=== PATIENT | male | born 1990 ===

== ENCOUNTER 2020-03-17 10:00 | Outpatient (REF) | payer MEDICAID, SELFPAY | END 2020-03-17 10:01 | disposition home or self-care (01) | LOC: HO.LAB 10:00 | PROVIDERS: Visit Provider Internal Medicine | DX: Z20.828 Contact with and (suspected) exposure to other viral communicable diseases (principal) | CPT/HCPCS: C9803; U0003 ==

== ENCOUNTER 2021-07-05 10:32 | Emergency (ER) | payer MEDICAID, SELFPAY ==
[2021-07-05 10:41] VITALS: BP 118/72; PULSE 71; O2SAT 100
[2021-07-05 11:26] VITALS: BP 110/80; PULSE 69; RESP 19; TEMP 36.6; O2SAT 99; BMI 28.1
[2021-07-05] MEDS: Ondansetron ODT 4 MG TAB.RAPDIS TRANSLINGU (11:33)
[2021-07-05 15:32] LABS: MANUAL DIFF FLAG NO
[2021-07-05 15:33] LABS: Basophils Percent Auto 0.2 % (0-2); Eosinophils Percent Auto 0.1 % (0-4); Hematocrit 47.3 % (42.0-52.0); Hemoglobin 16.8 g/dl (14.0-18.0); Imm Gran Abs Auto 0.05 X10*3/uL (0.00-0.03); Imm Gran Pct Auto 0.5 % (0.0-0.4); Lymphocytes Absolute Auto 0.3 X10*3/uL (1.2-4.9); Lymphocytes Percent Auto 3.5 % (20-40); Mean Corpuscular HGB Conc 35.5 g/dl (31.0-36.0); Mean Corpuscular Volume 81.7 fL (80.0-98.0); Mean Platelet Volume 9.9 fL (9.4-12.4); Monocytes Absolute Auto 0.9 X10*3/uL (0.1-1.2); Monocytes Percent Auto 9.3 % (2-11); Neutrophils Percent Auto 86.4 % (45-73); Platelet Count 296 X10*3/uL (160-400); Red Blood Count 5.79 X10*6/uL (4.60-5.80); White Blood Count 9.3 X10*3/uL (4.8-10.8)
[2021-07-05 15:53] LABS: Alanine Aminotransferase 27 U/L (0-40); Albumin Level 5.2 g/dL (3.5-5.0); Alkaline Phosphatase 75 U/L (39-117); Anion Gap 18 (12-20); Aspartate Amino Transferase 19 U/L (5-37); Bilirubin Direct 0.4 mg/dL (0.0-0.5); Bilirubin Total 0.9 mg/dL (0.0-1.0); Blood Urea Nitrogen 12 mg/dL (9-16); Calcium 10.6 mg/dL (8.4-10.2); Carbon Dioxide 24 mmol/L (22-29); Chloride 102 mmol/L (96-108); Creatinine Clr Calc Pharmacy 104.6; Estimated Glomerular Filt Rate > 60; Glucose Random 98 mg/dL (60-115); Lipase 8 U/L (8-78); Potassium 4.2 mmol/L (3.3-5.1); Sodium 140 mmol/L (135-145); Total Protein 8.1 g/dL (6.5-8.0)
[2021-07-05 15:56] LABS: COVID-19 Test Positive (Negative)
[2021-07-05 17:19] VITALS: BP 101/69; PULSE 63; RESP 20; TEMP 36.8; O2SAT 98
[2021-07-05] MEDS: 0.9 % Sodium Chloride 1,000 ML 999 ML IVCONT (19:19)
[2021-07-05] MEDS: Ketorolac Tromethamine 30 MG/ML VIAL IVPUSH (19:24)
[2021-07-05] MEDS: ondansetron HCL 4 MG/2 ML VIAL IVPUSH (19:25)
--- NOTE | 2021-07-05 20:04 | ED_ITS ---
HPI - Nausea/Vomiting/Diarrhea General Chief complaint: Nausea/Vomiting/Diarrhea Stated complaint: ABD PAIN/N/V Time Seen by Provider: 07/05/21 18:55 Source: patient Mode of arrival: ambulatory Limitations: no limitations History of Present Illness HPI Narrative: 31-year-old male presenting to the ED with complaints of a few hours of body aches, chills, fatigue, myalgias with nausea/ vomiting and epigastric abdominal pain. He reports that he is not tolerating anything p.o.. Reports that he was recently exposed to COVID his 2 daughters went to [place] and when they came back they were positive for COVID. He denies any other sick contacts. He denies any measured fevers, dizziness, headaches, neck pain /stiffness, trouble swallowing or breathing, sore throat, cough, chest pain or shortness of breath, radiation of the abdominal pain, back pain, dysuria, hematuria, abnormal penile discharge, rashes, lower extremity edema or calf tenderness, black or bloody stools, black or bloody emesis , recent antibiotic usage, others with similar symptoms, possible bad food exposure or any other symptoms complaints or concerns at this time. MD elicited complaint: nausea, vomiting and abdominal pain Onset (ago): hour(s) Description of vomiting: food contents, watery and bilious Associated nausea: Yes Associated abdominal pain: Yes Location of pain: epigastric Radiation: does not radiate Pain consistency: constant Severity: moderate Quality: cramping Exacerbating factors: none Relieving factors: none Associated symptoms: myalgias, fever/chills and nausea/vomiting Related Data Previous Rx's Medication Instructions Recorded acetaminophen 500 mg tablet 1,000 mg PO QID PRN #14 tab 07/05/21 (Tylenol Extra Strength) cyclobenzaprine 10 mg tablet 10 mg PO Q8H PRN #14 tab 07/05/21 ibuprofen 800 mg tablet 800 mg PO Q8H PRN #14 tab 07/05/21 ondansetron 4 mg disintegrating 4 mg PO Q6H #14 tab 07/05/21 tablet Allergies Allergy/AdvReac Type Severity Reaction Status Date / Time shrimp Allergy Unknown SWELLING Unverified 01/01/20 17:33 Review of Systems Review of Systems: Constitutional : No Fever, + Chills, No Night Sweats, + Fatigue, + Malaise Cardiovascular : No Chest Pain, No SOB Respiratory : No Cough, No Sputum, No Wheezing, No Dyspnea Gastrointestinal : + Nausea, + Vomiting, No Diarrhea, + abdominal Pain, No Hematochezia, No Melena Genitourinary : No irregular bleeding, No Dysuria, No Urinary Frequency, No Hematuria,No Urinary Incontinence, No Urgency, No Flank Pain Musculoskeletal : No joint pain, + Myalgias, No Joint Swelling Skin : No Skin Lesions, No rash Neuro : No Weakness, No Numbness, No Paresthesias, No Loss of Consciousness, No Dizziness, No Headache Heme/Lymph: No Lymphadenopathy Endocrine : No Temperature Intolerance Yes all other systems are reviewed and are negative Gastrointestinal: Gastrointestinal: Reports nausea PMFSH Past Medical History Attestation statement: The following information was validated with the patient. 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 Blood pressure normal. Heart rate normal. Respiration rate normal. Temperature normal. Oxygen saturation normal. Appearance: Alert. Oriented X3. No acute distress. Head: Normal external exam. Normocephalic. Eyes: PERRLA. EOMI. Conjunctiva and sclera normal. Eyelids normal. ENT: Pharynx normal. Uvula midline. Moist mucous membranes. No trismus noted. No drooling noted. No muffled voice noted. Neck: Normal inspection. Neck supple. FROM. No adenopathy. No meningeal signs. CVS: Normal heart rate and rhythm. Heart sound normal. No murmurs noted. Pulses normal throughout. Respiratory: No respiratory distress. Painless inspiration. Breath sounds normal. No wheezes/rales/rhonchi noted. Chest nontender. No accessory muscle usage noted or decreased air movement noted. Abdomen: Soft and nontender. Nondistended. No guarding. No rigidity. Bowel sounds normal in all 4 quadrants. No distention noted. No organomegaly noted. No visible injury noted. No rebound tenderness. Negative Rovsing sign. Negative obturator's sign. Negative psoas sign. Negative Freitas sign. Back: No CVA tenderness. Full range of motion noted. Skin: Skin warm and dry. Normal skin color. Normal skin turgor. No rashes/lesions/lacerations noted. Extremities: Extremities exhibit normal range of motion. Extremities nontender. Neuro: Oriented X 3. No motor deficit. No sensory deficit. Reflexes normal. Normal steady gait. CN's II-XII intact bilaterally? Course Course Course Narrative: 19pm - 31-year-old male presenting to the ED with complaints of a few hours of body aches, chills, fatigue, myalgias with nausea/ vomiting and epigastric abdominal pain. He reports that he is not tolerating anything p.o.. Reports that he was recently exposed to COVID his 2 daughters went to [place] and when they came back they were positive for COVID. Plan: Labs reviewed and all WNL. Patient + for COVID. On exam abd is soft and nontender. No additional labs/imaging indicated. Will provide IVF's provide 4mg of zofran and 30mg of IV Toradol then re-evaluate Reevaluation(s) Reevaluation #1: patient received a L of IV fluids. He is feeling much better. He is able to tolerate p.o. fluids. Will DC home instructions to self isolate to follow CDC guidelines and to return if any new or worsening symptoms. Patient understands agrees with this plan. Time: 20:10 MDM - Nausea/Vomiting/Diarrhea Medical Records Attestation: I reviewed the patient's medical records. Lab Data Attestation: I reviewed the patient's lab results. Result diagrams: 07/05/21 15:23 07/05/21 15:23 Labs: Lab Results 07/05/21 07/05/21 07/05/21 Range/Units 15: 15:23 15:23 WBC 9.3 (4.8-10.8) X10*3/uL RBC 5.79 (4.60-5.80) X10*6/uL Hgb 16.8 (14.0-18.0) g/dl Hct 47.3 (42.0-52.0) % MCV 81.7 (80.0-98.0) fL MCH 29.0 (27.0-33.0) pg MCHC 35.5 (31.0-36.0) g/dl RDW 12.0 (11.0-16.0) % Plt Count 296 (160-400) X10*3/uL MPV 9.9 (9.4-12.4) fL Immature Gran % (Auto) 0.5 H (0.0-0.4) % Neut % (Auto) 86.4 H (45-73) % Lymph % (Auto) 3.5 L (20-40) % [place] % (Auto) 9.3 (2-11) % Eos % (Auto) 0.1 (0-4) % Baso % (Auto) 0.2 (0-2) % Lymph # (Auto) 0.3 L (1.2-4.9) X10*3/uL [place] # (Auto) 0.9 (0.1-1.2) X10*3/uL Eos # (Auto) 0.0 (0.0-0.4) X10*3/uL Baso # (Auto) 0.0 (0.0-0.2) X10*3/uL Abs Immat Gran (auto) 0.05 H (0.00-0.03) X10*3/uL Absolute Neuts (auto) 8.0 (2.0-8.3) x10*3/uL Absolute Nucleated RBC 0.000 (0.0-0.012) X10*3/uL Nucleated RBC % (auto) 0.0 (0.0-0.2) /100WBC Sodium 140 (135-145) mmol/L Potassium 4.2 (3.3-5.1) mmol/L Chloride 102 (96-108) mmol/L Carbon Dioxide 24 (22-29) mmol/L Anion Gap 18 (12-20) BUN 12 (9-16) mg/dL Creatinine 0.92 (0.5-1.4) mg/dL Estim Creat Clear Calc 104.6 Estimated GFR > 60 Random Glucose 98 (60-115) mg/dL Calcium 10.6 H (8.4-10.2) mg/dL Total Bilirubin 0.9 (0.0-1.0) mg/dL Direct Bilirubin 0.4 (0.0-0.5) mg/dL AST 19 (5-37) U/L ALT 27 (0-40) U/L Alkaline Phosphatase 75 (39-117) U/L Total Protein 8.1 H (6.5-8.0) g/dL Albumin 5.2 H (3.5-5.0) g/dL Lipase 8 (8-78) U/L COVID-19 (KANDI) Positive A (Negative) COVID-19 Clin Com See Note Discharge Plan Discharge Clinical Impression: COVID-19, Nausea & vomiting Patient Disposition: Home, Self-Care Instructions: Acute Nausea and Vomiting (ED), COVID-19 (Coronavirus Disease 2019) (ED) Prescriptions: New ondansetron 4 mg tablet,disintegrating 4 mg PO Q6H Qty: 14 0RF ibuprofen 800 mg tablet 800 mg PO Q8H PRN (Reason: pain) Qty: 14 0RF acetaminophen [Tylenol Extra Strength] 500 mg tablet 1,000 mg PO QID PRN (Reason: fever or pain) Qty: 14 0RF cyclobenzaprine 10 mg tablet 10 mg PO Q8H PRN (Reason: Muscle spasm) Qty: 14 0RF Referrals: Vilma Gonzalez DO [Primary Care Provider] - 2 days Stand Alone Forms: Work/School Release Print Language: Congolese
--- NOTE | 2021-07-05 20:24 | PC.NURSE ---
PT GIVEN CRACKERS AND GINGERALE AND NO N/V AT THIS TIME.
--- NOTE | 2021-07-05 20:34 | PC.NURSE ---
HARD COLLAR REMOVED BY MEL RICCI.
== END 2021-07-05 20:56 | disposition home or self-care (01) ==
PROVIDERS: Emergency Provider Internal Medicine; PCP Family Medicine
DX: U07.1 COVID-19 (principal); R11.2 Nausea with vomiting, unspecified
CPT/HCPCS: 80048; 80076; 83690; 85025; 87635; 96361; 96374; 96375; 99283; 99284; J1885; J2405

== ENCOUNTER 2021-12-16 19:28 | Emergency (ER) | payer MEDICAID, SELFPAY ==
[2021-12-16 20:07] VITALS: BP 119/63; PULSE 84; RESP 18; TEMP 35.9; O2SAT 97; BMI 26.5
--- NOTE | 2021-12-16 22:15 | ED.GENADULT ---
HPI - General Adult General Chief complaint: Skin/Abscess/Foreign Body Stated complaint: Red inflamed skin after insect bite Time Seen by Provider: 12/16/21 22:15 Source: patient Mode of arrival: ambulatory Limitations: no limitations History of Present Illness HPI narrative: Patient is a 31 year old male presenting to the emergency department today with swelling to his right forearm. Patient states that he was bit by a bug 2 days ago and now his right arm is very swollen. Patient states that he had picked at the area a few times and some pus came out but he wasn't able to get all of it. Patient denies any dizziness, lightheadedness, abdominal pain, nausea, vomiting, fever, chills, blurry vision, double vision, loss of vision, chest pain, difficulty breathing, shortness of breath, back pain, night sweats, pain with urination, increased urinary frequency, increased urinary urgency, blood in his urine or stool, syncope or a near syncopal episode, recent trauma or falls, bowel incontinence, bladder incontinence, bowel retention, bladder retention, or any other complaints at this time. Onset (ago): day(s) (2) Location: right and upper extremity (forearm) Radiation: non-radiation Severity: mild Severity scale (1-10): 1 Pain Consistency: constant Relieving factors: none Exacerbating factors: none Associated symptoms: denies other symptoms Treatments prior to arrival: none Related Data Previous Rx's Medication Instructions Recorded acetaminophen 500 mg tablet 1,000 mg PO QID PRN fever or pain 07/05/21 (Tylenol Extra Strength) #14 tabs cyclobenzaprine 10 mg tablet 10 mg PO Q8H PRN Muscle spasm #14 07/05/21 tabs ibuprofen 800 mg tablet 800 mg PO Q8H PRN pain #14 tabs 07/05/21 ondansetron 4 mg disintegrating 4 mg PO Q6H Nausea and vomiting 07/05/21 tablet #14 tabs cephalexin 500 mg capsule 500 mg PO Q6H 7 days #28 caps 12/16/21 doxycycline hyclate 100 mg tablet 100 mg PO BID 7 days #14 tabs 12/16/21 Allergies Allergy/AdvReac Type Severity Reaction Status Date / Time shrimp Allergy Unknown SWELLING Unverified 01/01/20 17:33 Review of Systems Constitutional: Constitutional: Reports no additional constitutional complaints, Denies chills, Denies fever(s) and Denies night sweats Eyes: Eyes: Reports no additional eye complaints, Denies blurry vision, Denies change in vision, Denies diplopia, Denies eye discharge, Denies loss of vision and Denies eye pain ENT: Denies dizziness Cardiovascular: Cardiovascular: Reports no additional cardiovascular complaints, Denies chest pain, Denies lightheadedness, Denies Loss of Consciousness and Denies dyspnea Respiratory: Respiratory: Reports no additional respiratory complaints and Denies dyspnea Gastrointestinal: Gastrointestinal: Reports no additional gastrointestinal complaints, Denies abdominal pain, Denies melena, Denies hematochezia, Denies change in bowel habits and Denies change in stool character Genitourinary: Genitourinary: Reports no additional male genitourinary complaints, Denies hematuria, Denies oliguria, Denies difficulty urinating, Denies dysuria, Denies urinary frequency, Denies urinary hesitancy, Denies urinary incontinence and Denies urinary urgency Musculoskeletal: Musculoskeletal: Reports no additional musculoskeletal complaints, Denies numbness and Denies tingling Comments: right forearm swelling and pain Neurologic: Denies dizziness, Denies loss of vision, Denies numbness and Denies tingling Psychiatric: Psychiatric: Reports no additional psychiatric complaints Endocrine: Endocrine: Reports no additional endocrine complaints Hematologic/Lymphatic: Hematologic/Lymphatic: Reports no additional hematologic/lymphatic complaints Allergic/Immunologic: Allergic/Immunologic: Reports no additional allergic/immunologic complaints [facility] Past Medical History Attestation statement: The following information was validated with the patient. 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 Social History Social History Use of substances other than those prescribed or required for medical reasons: Yes Substance Use Type: Marijuana Substance Use Frequency: Weekly Advance Directives: No Advance Directives Information Provided: No Physical Exam ED Vital Signs: Vital Signs - 24 hr 12/16/21 20:07 12/16/21 23:53 Temperature 96.6 F L Pulse Rate 84 58 Respiratory Rate 18 16 Blood Pressure 119/63 123/69 Pulse Oximetry 97 100 Oxygen Delivery Method Room Air Room Air BMI result Body Mass Index 26.5 Const General: cooperative, no acute distress, alert and awake Nutritional Appearance: well nourished Orientation/consciousness: patient oriented x3 Limitations: no limitations HENMT Head: Yes normal to inspection and Yes atraumatic Ears: hearing grossly normal bilaterally and external ears normal General nose exam: Normal external nose present, no nasal discharge noted and no epistaxis Face and sinus: Yes normal facial exam, No abrasion and No laceration Mouth: Normal oral and palatal mucosa present, no drooling and no muffled voice Eyes General: appearance normal, both eyes and all related structures Periorbital: periorbital findings normal Eyelids: Yes eyelids normal Conjunctivae: conjunctivae normal Pupils: Equal, round and reactive pupils present EOM: EOMs intact bilaterally Neck Neck: Yes normal visual inspection, Yes full ROM and Yes no lymphadenopathy Chest Chest palpation & inspection: normal inspection of the chest Resp Effort & Inspection: normal respiratory effort and able to speak in complete sentences Auscultation: clear to auscultation bilaterally Cardio Rate: regular rate Rhythm: regular rhythm GI Inspection: Yes normal to inspection Neuro General: patient oriented x3 and moves all extremities Cranial nerves: Yes Equal, round and reactive pupils present Cognition (Neuro): normal cognition Motor exam (neuro): 5/5 motor strength present throughout Sensory Exam: Normal double simultaneous stimulation for sensation Coordination: [id number] test normal Extrem Other: obvious abscess to the dorsal aspect of the right forearm General: Yes full ROM and Yes capillary refill normal Psych Appearance: grossly normal Mental Status: mental status grossly normal Affect: normal affect Attitude: cooperative Thought process: Normal thought process present Thought content: Normal thought content present Insight: Good insight present (Psych) Procedures Abscess I/D Site: upper extremity Side (if applicable): right Sedation/analgesia: none Local Anesthetic: lidocaine 1% Amount of anesthesia used (mL): 2 Technique: incised with blade Amount of fluid expressed (mL): 15 Sent for culture/gram staining?: No Irrigation: No Packing used?: none Medical Decision Making MDM Narrative Medical decision making narrative: Patient is a 31 year old male presenting to the emergency department today with a right forearm abscess. Patient's physical exam showed an obvious abscess to the dorsal aspect of the right forearm. I explained my physical exam findings to the patient. I answered all questions asked by the patient. Patient's abscess was drained, per procedure note, without incident. I stressed the importance of the patient taking his medication as prescribed. I stressed the importance of the patient following up with his primary care provider and a general surgeon. I stressed the importance of the patient returning to the emergency department immediately if his symptoms were to worsen or if he were to develop any dizziness, shortness of breath, difficulty breathing, chest pain, blurry vision, loss of vision, nausea, vomiting, abdominal pain, fever, chills, back pain, or any other complaints. Patient verbalized agreement and understanding with this treatment plan and discharge. Differential Diagnosis Differential Diagnosis: abscess Medical Records Medical records reviewed: Yes I reviewed the patient's medical records. Discharge Plan Discharge Clinical Impression: Abscess of skin or subcutaneous tissue Patient Disposition: Home, Self-Care Instructions: Abscess (ED), Abscess Incision and Drainage (DC) Additional Instructions: Follow up with your primary care provider. Return to the emergency department immediately if your symptoms worsen or if you develop any dizziness, shortness of breath, difficulty breathing, chest pain, blurry vision, loss of vision, nausea, vomiting, abdominal pain, fever, chills, back pain, or any other complaints. Prescriptions: New cephalexin 500 mg capsule 500 mg PO Q6H 7 Days Qty: 28 0RF doxycycline hyclate 100 mg tablet 100 mg PO BID 7 Days Qty: 14 0RF No Action ondansetron 4 mg tablet,disintegrating 4 mg PO Q6H Qty: 14 0RF ibuprofen 800 mg tablet 800 mg PO Q8H PRN (Reason: pain) Qty: 14 0RF acetaminophen [Tylenol Extra Strength] 500 mg tablet 1,000 mg PO QID PRN (Reason: fever or pain) Qty: 14 0RF cyclobenzaprine 10 mg tablet 10 mg PO Q8H PRN (Reason: Muscle spasm) Qty: 14 0RF Referrals: [facility] [place] General Surgeons [Provider Group] (Call to follow up and establish with a general surgeon. ) Vilma Gonzalez DO [Primary Care Provider] - Interventions: ED Discharge Assessment Last Done: 12/16/21 23:57 Discharge Date/Time: 12/16/21 23:57 Print Language: Pashto
[2021-12-16] MEDS: Lidocaine HCl 1 % MPF 2 ML VIAL 4 ML INFILTRATI (22:50)
[2021-12-16] MEDS: cephALEXin 500 MG CAPSULE PO (22:50)
[2021-12-16 23:53] VITALS: BP 123/69; PULSE 58; RESP 16; O2SAT 100
--- NOTE | 2021-12-16 23:55 | PC.NURSE ---
pt a&o, no sob or chest pain. pt discharged with a steady gait. Reviewed discharge instructions with pt. Pt verbalized understanding.
== END 2021-12-16 23:57 | disposition home or self-care (01) ==
PROVIDERS: Emergency Provider Emergency Medicine Emergency Medical Services; PCP Family Medicine
DX: L02.413 Cutaneous abscess of right upper limb (principal); Z79.899 Other long term (current) drug therapy
CPT/HCPCS: 10060; 99284

== ENCOUNTER 2023-04-24 07:19 | Emergency (ER) | payer MEDICAID, SELFPAY ==
[2023-04-24 07:28] VITALS: BP 116/72; PULSE 90; RESP 18; TEMP 37; O2SAT 99; BMI 26.6
--- NOTE | 2023-04-24 08:05 | PC.NURSE ---
elementary instructional coach Kolby saw pt fall out of wheel chair, pt conscious and laying on floor, denies injury, denies hernandez or neck pain, able to stand and get back in wheelchair and brought to 22h, c/o dizziness
[2023-04-24 08:20] LABS: COVID-19 Test Negative (Negative); IDNOW Serial# 58CA691E
[2023-04-24 08:27] LABS: IDNOW Serial# 9DB6401D; Influenza A Positive (Negative); Influenza B2 Negative (Negative)
[2023-04-24 08:35] VITALS: BP 100/54; PULSE 104; RESP 20; TEMP 38.1; O2SAT 94
--- NOTE | 2023-04-24 08:37 | PC.NURSE ---
a&ox4, vs up to date. pt has oral temp of 100.6/tachycardic. pt c/o n/v/KRISHNAMURTHY x 2 days. pt increasingly weak - seemingly lethargic at this time. no sob/wob noted. respirations even and unlabored. resting comfortably on the stretcher.
--- NOTE | 2023-04-24 08:38 | ED.GENADULT ---
HPI - General Adult General Chief complaint: Upper Respiratory Symptoms Stated complaint: Flu Symptoms Time Seen by Provider: 04/24/23 08:22 Source: patient Mode of arrival: ambulatory Limitations: other (poor historian ) History of Present Illness HPI narrative: 32-year-old male history of asthma presenting to the emergency department with fatigue, malaise, myalgia, dry cough, facial congestion for the past 3 days, patient also reports associated nausea and vomiting that started yesterday with associated headache and lower back discomfort. Denies recent sick contacts. Denies chest pain, shortness of breath, hematemesis, hematochezia, melena, vision changes, dizziness or weakness NIH stroke scale 0 Related Data Previous Rx's Medication Instructions Recorded acetaminophen 500 mg tablet 1,000 mg (2 x 500 mg) PO QID PRN 07/05/21 (Tylenol Extra Strength) fever or pain #14 tabs cyclobenzaprine 10 mg tablet 10 mg PO Q8H PRN Muscle spasm #14 07/05/21 tabs ibuprofen 800 mg tablet 800 mg PO Q8H PRN pain #14 tabs 07/05/21 ondansetron 4 mg disintegrating 4 mg PO Q6H Nausea and vomiting 07/05/21 tablet #14 tabs cephalexin 500 mg capsule 500 mg PO Q6H 7 days #28 caps 12/16/21 doxycycline hyclate 100 mg tablet 100 mg PO BID 7 days #14 tabs 12/16/21 ondansetron 4 mg disintegrating 4 mg PO Q6H PRN nausea and 04/24/23 tablet vomiting #14 tabs Allergies Allergy/AdvReac Type Severity Reaction Status Date / Time shrimp Allergy Unknown SWELLING Verified 04/24/23 07:28 Review of Systems Review of Systems: Yes all other systems are reviewed and are negative PMFSH Past Medical History Attestation statement: The following information was validated with the patient. 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 Tylenol ordered at this time Appearance: Alert.? Oriented X3.? No acute distress.? Head: Normocephalic, atraumatic, no step-offs or deformities Eyes: Pupils equal, round and reactive to light.? ENT: Pharynx normal.? CVS: Normal heart rate and rhythm.? Pulses normal.? Respiratory: No respiratory distress.? Breath sounds normal.? Abdomen: Soft and nontender.? Skin: Skin warm and dry.? Normal skin color.? Normal skin turgor.? Extremities: No lower extremity edema.? No calf ttp. 5/5 strength to bilateral upper and lower extremities Neuro: Oriented X 3.? No motor deficit.? No sensory deficit. CN 2-12 intact Course Reevaluation(s) Reevaluation #1: Patient positive for influenza likely contributing to his symptoms. No indication for labs tolerating p.o.. Educated patient on diagnosis and treatment plan, answered all question, patient verbalizes understanding. At this time patient will be discharged home, advised to return with new or worsening symptoms. Educated on worrisome signs and symptoms and when to return. At this time I feel comfortable discharge home. Time: 08:40 Reevaluation #2: Sx onset > 48 hours ago therfor no indicaiton for tamiflu Time: 08:49 Medical Decision Making Medical Decision Making MDM Narrative: 32 year-old male presenting with viral symptoms ongoing for the past few days. ?Physical examination benign ?This is likely flu versus COVID versus RSV versus other viral illness? Versus bronchitis versus gastroenteritis versus food poisoning. Unlikely metabolic derangements, acute abdomen, pancreatitis, appendicitis, cholecystitis, diverticulitis, obstruction. Unlikely stroke, posterior stroke, intracranial hemorrhage. Low back pain and likely secondary to viral illness/myalgias unlikely cauda equina, epidural abscess or cord compression Plan- viral test? Differential Diagnosis Differential Diagnoses: The differential diagnosis associated with the presentation includes ?This is likely flu versus COVID versus RSV versus other viral illness? Versus bronchitis versus gastroenteritis versus food poisoning. Unlikely metabolic derangements, acute abdomen, pancreatitis, appendicitis, cholecystitis, diverticulitis, obstruction. Unlikely stroke, posterior stroke, intracranial hemorrhage. Low back pain and likely secondary to viral illness/myalgias unlikely cauda equina, epidural abscess or cord compression Admission/Observation Consideration of admission/observation: Escalation of care including admission/observation considered Lab Data MDM Lab Attestation statement: I reviewed the patient's lab results. Labs: Lab Results 04/24/23 Range/Units 07:35 COVID-19 ([facility]) Negative (Negative) COVID-19 Clin Com See Note Influenza Type A ([facility]) Positive A (Negative) Influenza Type B ([facility]) Negative (Negative) Influenza A & B Note See Note Prescription Management I considered prescription management with: Other (Zofran) Critical Care Time Critical Care Time Critical Care Time: No Discharge Plan Discharge Clinical Impression: Influenza Patient Disposition: Home, Self-Care Instructions: Influenza (ED) Additional Instructions: Take your medications as prescribed. If you were prescribed antibiotics today, it is important that you take your medication to their entirety, do not skip any doses, do not finish them early. Follow-up with your primary care provider this week. Return to the emergency department with new or worsening symptoms. Such as fevers, chills, chest pain, shortness of breath, nausea, vomiting, dizziness, headache, vision changes, lethargy In case of emergency call 911 Take Zofran for nausea and vomiting Prescriptions: New ondansetron 4 mg tablet,disintegrating 4 mg PO Q6H PRN (Reason: nausea and vomiting) Qty: 14 0RF No Action cephalexin 500 mg capsule 500 mg PO Q6H 7 Days Qty: 28 0RF doxycycline hyclate 100 mg tablet 100 mg PO BID 7 Days Qty: 14 0RF ondansetron 4 mg tablet,disintegrating 4 mg PO Q6H Qty: 14 0RF ibuprofen 800 mg tablet 800 mg PO Q8H PRN (Reason: pain) Qty: 14 0RF acetaminophen [Tylenol Extra Strength] 500 mg tablet 1,000 mg PO QID PRN (Reason: fever or pain) Qty: 14 0RF cyclobenzaprine 10 mg tablet 10 mg PO Q8H PRN (Reason: Muscle spasm) Qty: 14 0RF Referrals: Vilma Gonzalez DO [Primary Care Provider] - 2 days Stand Alone Forms: Work/School Release
[2023-04-24] MEDS: Ondansetron ODT 4 MG TAB.RAPDIS TRANSLINGU (09:01)
[2023-04-24] MEDS: Acetaminophen 325 MG TABLET 975 MG PO (09:01)
--- NOTE | 2023-04-24 09:01 | PC.NURSE ---
medication administered per provider order.
== END 2023-04-24 09:05 | disposition home or self-care (01) ==
PROVIDERS: Emergency Provider Emergency Medicine Emergency Medical Services; PCP Family Medicine
DX: J10.1 Influenza due to other identified influenza virus with other respiratory manifestations (principal); M79.10 Myalgia, unspecified site; R05.9 Cough, unspecified; R11.2 Nausea with vomiting, unspecified; Z11.52 Encounter for screening for COVID-19; Z79.899 Other long term (current) drug therapy
CPT/HCPCS: 87502; 87635; 99283; 99284

== ENCOUNTER 2023-05-23 18:24 | Emergency (ER) | payer MEDICAID, SELFPAY ==
[2023-05-23 18:53] VITALS: BP 152/74; PULSE 78; RESP 18; TEMP 36; O2SAT 96; BMI 25.5
--- NOTE | 2023-05-23 18:53 | ED_ITS ---
HPI - Dental/Oral General Chief complaint: Dental/Oral Stated complaint: facial swelling ? tooth Time Seen by Provider: 05/23/23 19:05 Source: patient Mode of arrival: ambulatory Limitations: no limitations History of Present Illness HPI Narrative: 32-year-old male with pmhx significant for asthma presents to the ED today for evaluation of dental pain and facial swelling x1 day. Endorses a sharp pain to his left upper teeth beginning yesterday. Admits to waking up this morning with some swelling to his left cheek. Denies drainage from the tooth. Has been taking tylenol and ibuprofen without relief. Currently see's a dentist however has not contacted them regarding this. Denies headache, dizziness, fever, chills, jaw pain, difficulty opening mouth, sore throat or throat swelling sensation, odynophagia, dysphagia, eye pain, vision changes, ear pain, rashes, chest pain, shortness of breath, wheezing. Only known allergy is to shrimp. Denies new detergents, soaps, lotions. Denies new foods. Related Data Previous Rx's Medication Instructions Recorded acetaminophen 500 mg tablet 1,000 mg (2 x 500 mg) PO QID PRN 07/05/21 (Tylenol Extra Strength) fever or pain #14 tabs cyclobenzaprine 10 mg tablet 10 mg PO Q8H PRN Muscle spasm #14 07/05/21 tabs ibuprofen 800 mg tablet 800 mg PO Q8H PRN pain #14 tabs 07/05/21 ondansetron 4 mg disintegrating 4 mg PO Q6H Nausea and vomiting 07/05/21 tablet #14 tabs cephalexin 500 mg capsule 500 mg PO Q6H 7 days #28 caps 12/16/21 doxycycline hyclate 100 mg tablet 100 mg PO BID 7 days #14 tabs 12/16/21 ondansetron 4 mg disintegrating 4 mg PO Q6H PRN nausea and 04/24/23 tablet vomiting #14 tabs amoxicillin 875 mg-potassium 1 tab PO BID 7 days #14 tabs 05/23/23 clavulanate 125 mg tablet naproxen 500 mg tablet 500 mg PO Q8-12H PRN pain (scale 05/23/23 score 4-6) #20 tabs Allergies Allergy/AdvReac Type Severity Reaction Status Date / Time shrimp Allergy Unknown SWELLING Verified 05/23/23 18:53 Review of Systems Review of Systems: Constitutional: No fever, chills, fatigue, night sweats, weight changes ENT/Mouth: No ear pain, hearing loss, nasal congestion, sinus pain, rhinorrhea, +dental pain, +facial swelling Eyes: No eye pain, swelling, redness, vision changes, discharge Cardio: No chest pain, palpitations, [place], orthopnea, peripheral edema Pulm: No SOB, cough, sputum, wheezing, dyspnea, hemoptysis GI: No nausea, vomiting, hematemesis, abdominal pain, diarrhea, constipation, hematochezia, melena : No irregular bleeding, dysuria, frequency, urgency, hesitancy, hematuria, flank pain MSK: No back pain, neck pain, joint pain, myalgias Skin: No lesions, rashes Neuro: No weakness, numbness, paresthesias, LOC, dizziness, headache All other systems reviewed and are negative. [facility] Past Medical History Attestation statement: The following information was validated with the patient. 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 Social History Social History Substance Use Type: Marijuana Advance Directives: No Advance Directives Information Provided: No Physical Exam Vital Signs: Vital Signs: Last Vital Signs Temp 96.8 F 05/23/23 18:53 Pulse 78 05/23/23 18:53 Resp 18 05/23/23 18:53 BP 152/74 H 05/23/23 18:53 Pulse Ox 96 05/23/23 18:53 O2 Del Method Room Air 05/23/23 18:53 BMI result Body Mass Index 25.5 Vital signs stable, afebrile Const: General: cooperative, healthy appearing, comfortable, no acute distress, alert and awake Orientation/consciousness: patient oriented x3 Limitations: no limitations HEENT: Other: + mild facial edema noted to left cheek. No erythema. Nontender to palpation. No palpable mass or abscess. Tongue and lips wnl + multiple dental caries and poor dentit ion. Multiple missing teeth. Localized periapical swelling to the buccal ginginva overlying the 1st bicuspid, 2nd bicuspid, 1st molar. No obvious abscess. No pointing. No active bleeding/ discharge. TTP. No palpable fluctuance. + some edema to buccal mucosa. Nontende r to palpation. No palpable mass or fluctuance. + Posterior oropharynx without erythema/ edema. Uvula midline. Controlling secretions and speaking in complete sentences + No submandublar or submental LAD + No cervical LAD Head: Yes normal to inspection, Yes normocephalic and Yes atraumatic Ears: hearing grossly normal bilaterally, external ears normal, TM's normal bilaterally, EAC's normal, mastoids normal and no periauricular adenopathy General nose exam: Normal external nose present and No nasal discharge present Face and sinus: Yes normal facial exam and Yes sinuses nontender Eyes: Other: + EOMs intact without pain General: appearance normal, both eyes and all related structures Conjunctivae: conjunctivae normal Sclerae: sclerae normal Pupils: Equal, round and reactive pupils present Neck: Neck: Yes normal visual inspection, Yes full ROM and Yes no lymphadenopathy Resp: Effort & Inspection: normal respiratory effort and able to speak in complete sentences Auscultation: clear to auscultation bilaterally Cardio: Rate: regular rate Rhythm: regular rhythm GI: Inspection: Yes normal to inspection Palpation (GI): Soft to palpation and nontender Skin: General skin exam: no rashes or lesions noted Neuro: General: patient oriented x3, gait normal and moves all extremities Cranial nerves: Yes Equal, round and reactive pupils present Extrem: General: Yes normal to inspection Course Course Course Narrative: 1906-- Patient with obvious dental infection. there is no clear abscess or palpable fluctuance on exam that would warrant drainage. I do not feel as though CT facial bones or soft tissues is warranted at this time and would not change my management. Will send augmentin to pharmacy. Advised patient to call his dentist in the morning to schedule an appointment. He verbalizes understanding. Discussed worrisome signs and symptoms of when to return to the ED. Patient has remained stable throughout ED visit today. All questions answered at this time. Patient is agreeable with disposition and stable for discharge. Medical Decision Making Medical Decision Making [facility] Narrative: 32-year-old male with pmhx significant for asthma presents to the ED today for evaluation of dental pain and facial swelling x1 day. Patient hypertensive to 152/74 likely secondary to pain. Vitals otherwise wnl. Afebrile. He is nontoxic-appearing and in no acute distress. EOMs intact without pain or entrapment. PERRLA. Bilateral EACs and TMs WNL. Please refer to physical exam portion for oral exam. Clinical concern for dental/ periapical abscess/infection, apthous stomatitis. Unlikely mono, herpes, sialadenitis, sialolithiasis, [employer], retropharyngeal abscess, deep neck infection, osteomyelitis, facial cellulitis/ abscess, lymphoma. Differential Diagnosis Differential Diagnoses: The differential diagnosis associated with the presentation includes as above. Admission/Observation Not indicated External Record Review External record reviewed: Inpatient record Tests considered The following testing was considered but not selected: Considered ordering CT facial bones however no indication of abscess, patient nontoxic appearing, vitals within normal limits, not warranted at this time. Prescription Management I considered prescription management with: Pain Medication (Naproxen) and Antibiotic (Augmentin) Social Determinants Patient?s care significantly limited by Social Determinants of Health including: Other Social Determinant of Health Critical Care Time Critical Care Time Critical Care Time: No Discharge Plan Discharge Clinical Impression: Dental infection, Facial swelling Patient Disposition: Home, Self-Care Instructions: Dental Abscess (ED), Root Canal (DC) Additional Instructions: You have a dental infection. There is no obvious abscess that needs to be drained. Augmentin as antibiotic that has been sent to your pharmacy. Take this twice daily for the next 7 days. Do not stop taking this early or skip any doses as this may cause infection to worsen or return. On amoxicillin-clavulanate, softer bowel movements are to be expected. Call your provider if you move your bowels more than 4 times a day, your bowel movements are almost all liquid, or you get a rash.? FOLLOW-UP WITH YOUR DENTIST TOMORROW. CALL THEM TO MAKE AN APPOINTMENT AND LET THEM KNOW ABOUT YOUR VISIT TODAY. If symptoms persist or worsen please return to the ED. In the case of an emergency call 911. Prescriptions: New amoxicillin-pot clavulanate 875-125 mg tablet 1 tab PO BID 7 Days Qty: 14 0RF naproxen 500 mg tablet 500 mg PO Q8-12H PRN (Reason: pain (scale score 4-6)) Qty: 20 0RF No Action cephalexin 500 mg capsule 500 mg PO Q6H 7 Days Qty: 28 0RF doxycycline hyclate 100 mg tablet 100 mg PO BID 7 Days Qty: 14 0RF ondansetron 4 mg tablet,disintegrating 4 mg PO Q6H Qty: 14 0RF ibuprofen 800 mg tablet 800 mg PO Q8H PRN (Reason: pain) Qty: 14 0RF acetaminophen [Tylenol Extra Strength] 500 mg tablet 1,000 mg PO QID PRN (Reason: fever or pain) Qty: 14 0RF cyclobenzaprine 10 mg tablet 10 mg PO Q8H PRN (Reason: Muscle spasm) Qty: 14 0RF ondansetron 4 mg tablet,disintegrating 4 mg PO Q6H PRN (Reason: nausea and vomiting) Qty: 14 0RF Interventions: ED Discharge Assessment Last Done: 05/23/23 19:33 Discharge Date/Time: 05/23/23 19:33
== END 2023-05-23 19:33 | disposition home or self-care (01) ==
PROVIDERS: Emergency Provider Emergency Medicine; PCP Family Medicine
DX: K04.7 Periapical abscess without sinus (principal); K08.89 Other specified disorders of teeth and supporting structures; R22.0 Localized swelling, mass and lump, head
CPT/HCPCS: 99282; 99283

== ENCOUNTER 2024-02-15 09:39 | Inpatient (IN) | payer MEDICAID, SELFPAY ==
--- NOTE | ~2024-02-15 | CT_ITS ---
EXAMINATION: CT ABDOMEN AND PELVIS WITHOUT CONTRAST CLINICAL INFORMATION: Flank pain. Concerning kidney stone versus pyelonephritis. COMPARISON: CT dated February 10, 2015 TECHNIQUE: Multidetector volumetric imaging was performed from the superior aspect of the liver through the pubic symphysis. Sagittal and coronal reformatted images were obtained on the technologist's workstation. This CT examination was performed using dose optimization techniques as appropriate, variously including the following: *Automated exposure control *Adjustment of mA and/or kV according to patient size (this includes techniques or standardized protocols for targeted exams where dose is matched to indication/reason for exam; i.e. extremities or head) *Use of iterative reconstruction technique DLP: 347 mGy-cm FINDINGS: Limited evaluation of the intra-abdominal organs and vascular structures due to lack of IV contrast. LIVER, GALLBLADDER, AND BILIARY TREE: Liver measures 14 cm. No intrahepatic biliary ductal dilatation. No pericholecystic fluid collection or gallbladder wall thickening. Common bile duct measures less than 4 mm. PANCREAS: No peripancreatic fluid collections. No main pancreatic ductal dilatation. SPLEEN: Spleen measures 8 cm. ADRENAL GLANDS: No nodular lesions. KIDNEYS AND URETERS: There is a 10 mm obstructing calculus at the right ureteropelvic junction resulting in dilatation of the pelvicalyceal system. There is a 1.5 mm nonobstructing calculus in the lower right pelvicalyceal system. No hydronephrosis or nephrolithiasis in the left kidney. BLADDER: Fluid-filled. GASTROINTESTINAL TRACT: Percutaneously placed peritoneal catheter in the left lower peritoneal cavity. No ascites. No intestinal obstruction pattern. No pneumatosis intestinalis. The appendix is normal. ABDOMINAL WALL: No gross abdominal wall defect. LYMPH NODES: No gross lymphadenopathy. VASCULAR: No aneurysm, abdominal aorta. . Punctate calcification in the right inguinal scrotal region. OSSEOUS STRUCTURES: No acute fracture. No lytic or blastic lesions. Spondylosis, L5-S1 resulting in grade [address]/CT abdomen pelvis wo IV con IMPRESSION: 10 mm obstructing calculus at the right ureteropelvic junction resulting in right hydronephrosis. Nonobstructing nephrolithiasis, right kidney. Fleischner guidelines were followed. Electronically signed by: Elias Art MD 02/15/2024 03:33 PM EDT
[2024-02-15 09:56] VITALS: BP 119/69; PULSE 55; RESP 20; TEMP 37; O2SAT 98; BMI 26.6
[2024-02-15 10:56] LABS: Appearance Urine Cloudy; Color Urine BROWN; Glucose Urine UA Negative (Negative); Leukocyte Esterase Urine Trace (Negative); Nitrite Urine Positive (Negative); PH 6.5 (5.0-9.0); Specific Gravity - Urine >= 1.030 (1.005-1.025); UMIC TRIGGER UACC YES; Urine Blood Large (3+) (Negative); Urine Ketones Trace mg/dL (Negative); Urine Protein 300 (3+) mg/dL (Neg-Trace)
[2024-02-15 11:04] LABS: Bacteria Urine None Seen (None Seen); Hyaline Casts Urine 0-2 /LPF (0-2); RBC Urine >20 /HPF (0-2); Squamous Epithelial Cell Urine 0-2 /HPF (0-2); UACC Culture Trigger YES; WBC Urine >50 /HPF (0-5)
[2024-02-15 12:29] LABS: MANUAL DIFF FLAG NO
[2024-02-15] MEDS: 0.9 % Sodium Chloride 1,000 ML 999 ML IV (12:30)
[2024-02-15 12:34] LABS: Basophils Percent Auto 0.2 % (0-2); Eosinophils Absolute Auto 0.1 X10*3/uL (0.0-0.4); Eosinophils Percent Auto 0.8 % (0-4); Hematocrit 44.8 % (42.0-52.0); Hemoglobin 15.7 g/dl (14.0-18.0); Imm Gran Abs Auto 0.06 X10*3/uL (0.00-0.03); Imm Gran Pct Auto 0.5 % (0.0-0.4); Lymphocytes Absolute Auto 1.1 X10*3/uL (1.2-4.9); Lymphocytes Percent Auto 8.6 % (20-40); Mean Corpuscular Hemoglobin 28.8 pg (27.0-33.0); Mean Corpuscular Volume 82.2 fL (80.0-98.0); Mean Platelet Volume 9.8 fL (9.4-12.4); Monocytes Absolute Auto 0.8 X10*3/uL (0.1-1.2); Monocytes Percent Auto 6.1 % (2-11); Neutrophils Absolute Auto 11.1 x10*3/uL (2.0-8.3); Neutrophils Percent Auto 83.8 % (45-73); Platelet Count 328 X10*3/uL (160-400); Red Blood Count 5.45 X10*6/uL (4.60-5.80); Red Cell Distribution Width 12.3 % (11.0-16.0); White Blood Count 13.2 X10*3/uL (4.8-10.8)
[2024-02-15] MEDS: Ketorolac Tromethamine 30 MG/ML VIAL IVPUSH (12:34)
[2024-02-15 12:45] LABS: Alanine Aminotransferase 32 U/L (0-40); Albumin Level 4.7 g/dL (3.5-5.0); Alkaline Phosphatase 64 U/L (39-117); Anion Gap 11 (12-20); Aspartate Amino Transferase 29 U/L (5-37); Bilirubin Total 1.1 mg/dL (0.0-1.0); Blood Urea Nitrogen 10 mg/dL (9-16); Calcium 10.1 mg/dL (8.4-10.2); Carbon Dioxide 27 mmol/L (22-29); Chloride 104 mmol/L (96-108); Creatinine Clr Calc Pharmacy 91.7; Estimated Glomerular Filt Rate > 60; Glucose Random 97 mg/dL (60-115); Sodium 138 mmol/L (135-145); Total Protein 7.6 g/dL (6.5-8.0)
--- NOTE | 2024-02-15 12:54 | ED.GENADULT ---
HPI - General Adult General Chief complaint: Back Pain/Injury Stated complaint: side pain into stomach Time Seen by Provider: 02/15/24 11:37 History of Present Illness ED Provider: Ildefonso Sosa PA-C HPI narrative: [age] year male history of kidney stones presents to ED for right flank pain, and dark urine. Patient states also subjective fever. Patient states also nausea and vomiting. 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 Social History Social History Household Members: None Housing: Apartment Do you presently have visiting nurse or other home services: No Alcohol intake: current Alcohol type: wine and hard liquor Patient Tobacco Use Status: Current everyday Tobacco user Tobacco use type: Cigarette Cigarettes Per Day: 1 Smoked in Last 30 Days: Yes e-Cigarette/Vaping Use: Currently Using Frequency of e-Cigarette/Vaping Use: sometimes Patient Interested in Nicotine Replacement: Yes Patient Given Instructions on How to Stop Smoking: Yes Date Education Initiated: 02/15/24 Use of substances other than those prescribed or required for medical reasons: Yes Substance Use Type: Marijuana Substance Use Frequency: Daily Last Used Substance Other:: 0545 Currently Displaying Signs/Symptoms of Drug Intoxication Withdrawal: No Any prior treatment program specific to substance use: No Have you been hit, kicked, punched, or otherwise hurt by someone within the past year? If so, by whom?: No Do you feel safe in your current relationship?: No Is there a partner from a previous relationship who is making you feel unsafe now?: No Are you made to feel afraid or neglected: No Advance Directives: No Advance Directives Information Provided: Yes Do you have a plan to hurt others: No Plan Recently lost weight without trying: No Eating poorly because of decreased appetite: No Nutrition Risks: No Nutritional Risk Poor oral hygiene: No service: No Physical Exam ED Vital Signs: Vital Signs - 24 hr 02/15/24 20:08 02/15/24 21:23 02/16/24 03:21 Temperature 97.9 F 98 F 98.1 F Pulse Rate 80 63 56 Respiratory Rate 16 20 16 Blood Pressure 136/67 118/61 100/58 L Pulse Oximetry 97 97 98 Oxygen Delivery Method Room Air Room Air Room Air 02/16/24 07:18 Temperature 98.5 F Pulse Rate 51 Respiratory Rate 16 Blood Pressure 115/64 Pulse Oximetry 97 Oxygen Delivery Method Room Air BMI result Body Mass Index 24.9 Const General: cooperative, healthy appearing, comfortable, no acute distress, well developed, alert, awake and Physically active Orientation/consciousness: patient oriented x3 HENMT Head: Yes normal to inspection, Yes No palpable skull fracture present, Yes normocephalic, Yes atraumatic and No abrasion Eyes General: appearance normal, both eyes and all related structures Neck Neck: Yes normal visual inspection, Yes full ROM, Yes no lymphadenopathy, Yes no meningeal signs, Yes trachea midline, Yes supple, No anterior neck swelling and No tender Chest Chest palpation & inspection: normal inspection of the chest and normal palpation of entire chest wall Resp Effort & Inspection: normal respiratory effort and able to speak in complete sentences Auscultation: clear to auscultation bilaterally Cardio Jugular venous distension: no JVD Heart sounds: S1 normal heart sound present and S2 normal heart sound present GI Inspection: Yes normal to inspection Palpation (GI): Soft to palpation, not firm, nontender, no guarding and not rigid General: Yes CVA tenderness (Right) Back/Spine/Pelvis Back: CVA tenderness (Right) Skin General skin exam: no rashes or lesions noted, elasticity normal and turgor normal Neuro General: patient oriented x3, gait normal, tone normal, moves all extremities, Normal light touch and pain sensation, no meningeal signs, no focal motor deficits, CN's II-XI intact bilaterally and normal sensation to monofilament Extrem General: Yes normal to inspection, Yes full ROM and Yes capillary refill normal Psych Appearance: grossly normal, well kempt and not disheveled Medications Administered Generic Name Dose Route Start Last Admin Trade Name Freq PRN Reason Stop Dose Admin Ceftriaxone Sodium 1 gm 11/02/24 09:00 02/16/24 09:43 Ceftriaxone Sodium 1 Gm Vial IVPUSH 1 gm DAILY LAURA Administration Dextrose/Sodium Chloride 1,000 mls @ 80 mls/hr 02/15/24 18:45 02/16/24 07:38 D5ns IVCONT 80 mls/hr .[id number] LAURA Administration Nicotine 21 mg 02/16/24 09:00 02/16/24 09:44 Nicotine 21 Mg Patch.Td24 TRANSDERMA 21 mg DAILY LAURA Administration Nicotine Polacrilex 2 mg 02/15/24 22:36 02/16/24 16:26 Nicotine Polacrilex 2 Mg Gum BUCCAL 2 mg Q2H PRN Administration Nicotine Cravings Sodium Chloride 3 ml 02/16/24 00:00 02/16/24 15:35 0.9 % Sodium Chloride Flush 3 Ml Syringe IVFLUSH Not Given QSHIFT LAURA Tamsulosin HCl 0.4 mg 02/16/24 09:00 02/16/24 09:43 Tamsulosin Hcl 0.4 Mg Capsule PO 0.4 mg DAILY LAURA Administration Discontinued Medications Generic Name Dose Route Start Last Admin Trade Name Freq PRN Reason Stop Dose Admin Ceftriaxone Sodium 1 gm 02/15/24 17:41 02/15/24 19:01 Ceftriaxone Sodium 1 Gm Vial IVPUSH 02/15/24 17:42 1 gm ONCE ONE Administration Sodium Chloride 1,000 mls @ 999 mls/hr 02/15/24 12:15 02/15/24 14:00 Ns IV 02/15/24 13:15 Infused .Q1H1M STA Infusion Ketorolac Tromethamine 30 mg 02/15/24 12:15 02/15/24 12:34 Ketorolac Tromethamine 30 Mg/Ml Vial IVPUSH 02/15/24 12:16 30 mg ONCE ONE Administration Medical Decision Making Medical Decision Making MDM Narrative: 33-year-old male presents to ED for by flank pain with dark urine with nausea and vomiting. Patient states history of kidney stones. UA shows positive for blood and bacteria. Patient will be sent for CT scan and have labs drawn. 5:00pm: Case discussed with Dr. Reyes who recommends patient be admitted to medicine for IV antiobics. CT scan shows 10mm obstructive stone with hydronephritis Differential Diagnosis Differential Diagnoses: The differential diagnosis associated with the presentation includes (uTI, kidney stones, ) Admission/Observation Consideration of admission/observation: Escalation of care including admission/observation considered Consult Healthcare Provider Management of the patient was discussed with: Integrated Circuits Inspector (Dr. Reyes) Lab Data MDM Lab Attestation statement: I reviewed the patient's lab results. 02/15/24 12:26 02/15/24 12:26 Labs: Lab Results 02/15/24 02/15/24 02/15/24 Range/Units 10:44 12:26 18:35 WBC 13.2 H (4.8-10.8) X10*3/uL RBC 5.45 (4.60-5.80) X10*6/uL Hgb 15.7 (14.0-18.0) g/dl Hct 44.8 (42.0-52.0) % MCV 82.2 (80.0-98.0) fL MCH 28.8 (27.0-33.0) pg MCHC 35.0 (31.0-36.0) g/dl RDW 12.3 (11.0-16.0) % Plt Count 328 (160-400) X10*3/uL MPV 9.8 (9.4-12.4) fL Immature Gran % (Auto) 0.5 H (0.0-0.4) % Neut % (Auto) 83.8 H (45-73) % Lymph % (Auto) 8.6 L (20-40) % [place] % (Auto) 6.1 (2-11) % Eos % (Auto) 0.8 (0-4) % Baso % (Auto) 0.2 (0-2) % Lymph # (Auto) 1.1 L (1.2-4.9) X10*3/uL [place] # (Auto) 0.8 (0.1-1.2) X10*3/uL Eos # (Auto) 0.1 (0.0-0.4) X10*3/uL Baso # (Auto) 0.0 (0.0-0.2) X10*3/uL Abs Immat Gran (auto) 0.06 H (0.00-0.03) X10*3/uL Absolute Neuts (auto) 11.1 H (2.0-8.3) x10*3/uL Absolute Nucleated RBC 0.000 (0.0-0.012) X10*3/uL Nucleated RBC % (auto) 0.0 (0.0-0.2) /100WBC Sodium 138 (135-145) mmol/L Potassium 4.0 (3.3-5.1) mmol/L Chloride 104 (96-108) mmol/L Carbon Dioxide 27 (22-29) mmol/L Anion Gap 11 L (12-20) BUN 10 (9-16) mg/dL Creatinine 0.93 (0.5-1.4) mg/dL Estim Creat Clear Calc 91.7 Estimated GFR > 60 Random Glucose 97 (60-115) mg/dL Lactic Acid 0.8 (0.5-2.0) mmol/L Calcium 10.1 (8.4-10.2) mg/dL Total Bilirubin 1.1 H (0.0-1.0) mg/dL AST 29 (5-37) U/L ALT 32 (0-40) U/L Alkaline Phosphatase 64 (39-117) U/L Total Protein 7.6 (6.5-8.0) g/dL Albumin 4.7 (3.5-5.0) g/dL Urine Color BROWN Urine Appearance Cloudy Urine pH 6.5 (5.0-9.0) Ur Specific [place] >= 1.030 H (1.005-1.025) Urine Protein 300 (3+) H (Neg-Trace) mg/dL Urine Glucose (UA) Negative (Negative) mg/dL Urine Ketones Trace (Negative) mg/dL Urine Blood Large (3+) H (Negative) Urine Nitrite Positive H (Negative) Ur Leukocyte Esterase Trace H (Negative) Urine RBC >20 H (0-2) /HPF Urine WBC >50 H (0-5) /HPF Ur Squamous Epith Cells 0-2 (0-2) /HPF Urine Bacteria None Seen (None Seen) Hyaline Casts 0-2 (0-2) /LPF Independent Interpretation I performed an independent interpretation of an: CT Scan Radiology Impression Discussion of test interpretation with radiology: I have reviewed the radiologist's reading. Independent Historian Clinical information obtained from an independent historian. History obtained from or confirmed by: Other (patient) External Record Review External record reviewed: Other (prior visits) Discharge Plan Discharge Clinical Impression: Kidney stone Patient Disposition: Admitted As Inpatient Interventions: Admission Worksheet (ED) Last Done: 02/15/24 19:48 Discharge Date/Time: 02/15/24 19:48
[2024-02-15 13:12] VITALS: BP 111/62; PULSE 60; RESP 18; TEMP 36.8; O2SAT 95
--- NOTE | 2024-02-15 13:27 | PC.NURSE ---
Fluids set at slower rate due to fluid shortage.
[2024-02-15 16:23] VITALS: BP 121/62; PULSE 64; RESP 18; TEMP 37.2; O2SAT 97
--- NOTE | 2024-02-15 18:37 | P.HPHOSP_ITS ---
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 Patient said that he also had renal stone many years ago which he passed spontaneously. This time he is having pain from at least few weeks to month but now the pain is becoming more unbearable that is why decided to come to the hospital. CBC and BMP, UA, abdominal imaging reviewed: Patient has leukocytosis, pyuria/hematuria, CT abdomen shows 10 mm obstructing calculus in the right ureteropelvic junction with right-sided hydronephrosis. ED physician discussed the case with Urology recommended to start IV fluid, pain management and antibiotics and recommended admission for medical floor. 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 Social History Alcohol intake: current Alcohol type: wine and hard liquor Smoked in Last 30 Days: Yes Use of substances other than those prescribed or required for medical reasons: Yes Substance Use Type: Marijuana Advance Directives: No Advance Directives Information Provided: Yes Do you have a plan to hurt others: No Plan Meds Allergies Allergy/AdvReac Type Severity Reaction Status Date / Time shrimp Allergy Unknown SWELLING Verified 02/15/24 09:59 Active Medications: Current Medications Acetaminophen (Acetaminophen 325 Mg Tablet) 650 mg PO Q6H PRN PRN Reason: Pain, Mild (Pain Scale 1-3), fever or headache Calcium Carbonate (Calcium Carbonate 750 Mg Tab.Chew) 750 mg PO Q4H PRN PRN Reason: Heartburn Ceftriaxone Sodium (Ceftriaxone Sodium 1 Gm Vial) 1 gm IVPUSH DAILY LAURA Hydromorphone HCl (Hydromorphone Hcl 1 Mg/Ml Syringe) 1 mg IVPUSH Q4H PRN; Protocol PRN Reason: Pain, Moderate(Pain Scale 4-6) Dextrose/Sodium Chloride (D5ns) 1,000 mls @ 80 mls/hr IVCONT .[id number] LAURA Magnesium Hydroxide (Milk Of Magnesia 30 Ml Oral.Susp) 30 ml PO DAILY PRN PRN Reason: Constipation Melatonin (Melatonin 3 Mg Tablet) 6 mg PO BEDTIME PRN PRN Reason: Insomnia Sodium Chloride (0.9 % Sodium Chloride Flush 3 Ml Syringe) 3 ml IVFLUSH QSHIFT LAURA Tamsulosin HCl (Tamsulosin Hcl 0.4 Mg Capsule) 0.4 mg PO DAILY LAURA Home Medications ?Medication ?Instructions ?Recorded ?Confirmed ?Last Taken ?Type No Known Home Meds 02/15/24 02/15/24 Unknown History Physical Exam 2 Vital Signs and Narrative: Vital Signs: Last Vital Signs Temp 98.9 F 02/15/24 16:23 Pulse 64 02/15/24 16:23 Resp 18 02/15/24 16:23 BP 121/62 02/15/24 16:23 Pulse Ox 97 02/15/24 16:23 O2 Del Method Room Air 02/15/24 16:23 BMI result Body Mass Index 26.6 Appearance: Alert.? Oriented X3.? in pain Eyes: Pupils equal, round and reactive to light.? Sclera nonicteric.? ENT: Pharynx normal.? Moist mucous membranes. also has shunt right side of neck. cvs: rrr, [id number] . res: clear to auscultation ,no rhonchii or wheezing abd: no rebound or guarding ,nt, bs present. Gu-right side cva tenderness. ext pulses present , no cyanosis. neuro: axo3 , nonfocal. Results Labs 02/15/24 12:26 02/15/24 12:26 Labs: Laboratory Results - last 24 hr 02/15/24 02/15/24 10:44 12:26 MCV 82.2 MCH 28.8 MCHC 35.0 RDW 12.3 Plt Count 328 MPV 9.8 Immature Gran % (Auto) 0.5 H Neut % (Auto) 83.8 H Lymph % (Auto) 8.6 L [place] % (Auto) 6.1 Eos % (Auto) 0.8 Baso % (Auto) 0.2 Lymph # (Auto) 1.1 L [place] # (Auto) 0.8 Eos # (Auto) 0.1 Baso # (Auto) 0.0 Abs Immat Gran (auto) 0.06 H Absolute Neuts (auto) 11.1 H Absolute Nucleated RBC 0.000 Nucleated RBC % (auto) 0.0 Anion Gap 11 L Estim Creat Clear Calc 91.7 Estimated GFR > 60 Random Glucose 97 Calcium 10.1 Total Bilirubin 1.1 H AST 29 ALT 32 Alkaline Phosphatase 64 Total Protein 7.6 Albumin 4.7 Urine Color BROWN Urine Appearance Cloudy Urine pH 6.5 Ur Specific [place] >= 1.030 H Urine Protein 300 (3+) H Urine Glucose (UA) Negative Urine Ketones Trace Urine Blood Large (3+) H Urine Nitrite Positive H Ur Leukocyte Esterase Trace H Urine RBC >20 H Urine WBC >50 H Ur Squamous Epith Cells 0-2 Urine Bacteria None Seen Hyaline Casts 0-2 Imaging Radiologist's Impressions: Impressions Abdomen/Pelvis CT 02/15/24 12:56 IMPRESSION: 10 mm obstructing calculus at the right ureteropelvic junction resulting in right hydronephrosis. Nonobstructing nephrolithiasis, right kidney. Fleischner guidelines were followed. 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 Patient said that he also had renal stone many years ago which he passed spontaneously. This time he is having pain from at least few weeks to month but now the pain is becoming more unbearable that is why decided to come to the hospital. 1. Renal colic/possible?uti CT abdomen shows 10 mm stone-unlikely to pass Patient was started on IV fluid, IV Dilaudid/ceftriaxone and Flomax. Urology evaluation NPO past midnight Rest of the chronic conditions: Medication reconciliation pending. Patient will benefit for at least observation stay considering intractable pain and significant size of stone unlikely to pass might need urology intervention as well as IV antibiotics and IV pain medication Above management discussed with the patient in detail length he understand and in agreement with the above plan, time spent 70 minute. Quality Stroke Does the patient have a stroke diagnosis?: No VTE Prior VTE?: No VTE Risk Level:: Medical - moderate - high VTE Device Contraindication: N/A - Device Ordered VTE Drug Contraindication: N/A - Med Ordered
--- NOTE | 2024-02-15 18:38 | PHA.MEDREC ---
Pharmacy Consult ? Medication Reconciliation Pharmacy has completed the medication reconciliation.
[2024-02-15 18:53] LABS: Lactic Acid 0.8 mmol/L (0.5-2.0)
[2024-02-15] MEDS: cefTRIAXone sodium 1 GM VIAL IVPUSH (19:01)
[2024-02-15] MEDS: Dextrose 5 % and 0.9 % NaCl 1,000 ML 80 ML IVCONT (19:35)
[2024-02-15 20:08] VITALS: BP 136/67; PULSE 80; RESP 16; TEMP 36.6; O2SAT 97
[2024-02-15 21:23] VITALS: BP 118/61; PULSE 63; RESP 20; TEMP 36.6; O2SAT 97
[2024-02-15 21:50] VITALS: BMI 24.9
[2024-02-15] MEDS: Nicotine Polacrilex 2 MG GUM BUCCAL (22:54)
[2024-02-16 03:21] VITALS: BP 100/58; PULSE 56; RESP 16; TEMP 36.7; O2SAT 98
--- NOTE | 2024-02-16 03:24 | PC.NURSE ---
Pt arrived from the ED at 2200, alert and oriented, denies any pain, pt verbalized feeling anxious from not able to smoke, pt instructed, Dr. Flynn updated, Nicorrete gum ordered an given, slept after.
[2024-02-16 07:18] VITALS: BP 115/64; PULSE 51; RESP 16; TEMP 36.9; O2SAT 97
[2024-02-16] MEDS: Nicotine Polacrilex 2 MG GUM BUCCAL ×3 (07:37→21:19)
[2024-02-16] MEDS: Dextrose 5 % and 0.9 % NaCl 1,000 ML 80 ML IVCONT ×2 (07:38→21:19)
[2024-02-16] MEDS: Tamsulosin HCL 0.4 MG CAPSULE PO (09:43)
[2024-02-16] MEDS: cefTRIAXone sodium 1 GM VIAL IVPUSH (09:43)
[2024-02-16] MEDS: Nicotine 21 MG PATCH.TD24 TRANSDERMA (09:44)
--- NOTE | 2024-02-16 10:28 | MHC.CM.PN ---
PT LIVES ALONE IS INDEPEDENT AND WORKING WILL NOT NEED SERVIES WHEN DCD
--- NOTE | 2024-02-16 12:40 | HO.PM.IMPN ---
Subjective Subjective Date of Service: 02/16/24 Interval History: renal colic Review of Systems pain somewaht improving' Physical Exam Vital Signs: Vital Signs: Last Vital Signs Temp 98.5 F 02/16/24 07:18 Pulse 51 02/16/24 07:18 Resp 16 02/16/24 07:18 BP 115/64 02/16/24 07:18 Pulse Ox 97 02/16/24 07:18 O2 Del Method Room Air 02/16/24 07:18 BMI result Body Mass Index 24.9 Appearance: Alert.? Oriented X3.? also has shunt right side of neck. cvs: rrr, [id number] . res: clear to auscultation ,no rhonchii or wheezing abd: no rebound or guarding ,nt, bs present. Gu-right side cva tenderness seems improved. ext pulses present , no cyanosis. neuro: axo3 , nonfocal. Objective Data Active Medications Acetaminophen (Acetaminophen 325 Mg Tablet) 650 mg PO Q6H PRN PRN Reason: Pain, Mild (Pain Scale 1-3), fever or headache Calcium Carbonate (Calcium Carbonate 750 Mg Tab.Chew) 750 mg PO Q4H PRN PRN Reason: Heartburn Ceftriaxone Sodium (Ceftriaxone Sodium 1 Gm Vial) 1 gm IVPUSH DAILY [facility] Last Admin: 02/16/24 09:43 Dose: 1 gm Documented By: SHANNAN Hydromorphone HCl (Hydromorphone Hcl 1 Mg/Ml Syringe) 1 mg IVPUSH Q4H PRN; Protocol PRN Reason: Pain, Moderate(Pain Scale 4-6) Dextrose/Sodium Chloride (D5ns) 1,000 mls @ 80 mls/hr IVCONT .[id number] [facility] Last Admin: 02/16/24 07:38 Dose: 80 mls/hr Documented By: SHANNAN Magnesium Hydroxide (Milk Of Magnesia 30 Ml Oral.Susp) 30 ml PO DAILY PRN PRN Reason: Constipation Melatonin (Melatonin 3 Mg Tablet) 6 mg PO BEDTIME PRN PRN Reason: Insomnia Nicotine (Nicotine 21 Mg Patch.Td24) 21 mg TRANSDERMA DAILY [facility] Last Admin: 02/16/24 09:44 Dose: 21 mg Documented By: SHANNAN Nicotine Polacrilex (Nicotine Polacrilex 2 Mg Gum) 2 mg BUCCAL Q2H PRN PRN Reason: Nicotine Cravings Last Admin: 02/16/24 07:37 Dose: 2 mg Documented By: SHANNAN Sodium Chloride (0.9 % Sodium Chloride Flush 3 Ml Syringe) 3 ml IVFLUSH QSHIFT [facility] Last Admin: 02/16/24 07:40 Dose: Not Given Documented By: SHANNAN Non-Admin Reason: IV Running Tamsulosin HCl (Tamsulosin Hcl 0.4 Mg Capsule) 0.4 mg PO DAILY [facility] Last Admin: 02/16/24 09:43 Dose: 0.4 mg Documented By: SHANNAN Labs 02/15/24 12:26 02/15/24 12:26 Labs: Laboratory Results - last 24 hr 02/15/24 02/15/24 12:26 18:35 Anion Gap 11 L Estim Creat Clear Calc 91.7 Estimated GFR > 60 Random Glucose 97 Lactic Acid 0.8 Calcium 10.1 Total Bilirubin 1.1 H AST 29 ALT 32 Alkaline Phosphatase 64 Total Protein 7.6 Albumin 4.7 Microbiology Microbiology Results: Microbiology 02/15/24 Unknown Urine Culture - Preliminary Urine clean catch - Clean Catch Midstream Culture in progress. 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 Patient said that he also had renal stone many years ago which he passed spontaneously. This time he is having pain from at least few weeks to month but now the pain is becoming more unbearable that is why decided to come to the hospital. 1. Renal colic/possible?uti CT abdomen shows 10 mm stone-unlikely to pass Patient was started on IV fluid, IV Dilaudid/ceftriaxone and Flomax. Patient says that he has good pain tolerance and also on pain medications so now the pain seems to be controlled. Urology evaluation-continue above management , might need stent on sunday Rest of the chronic conditions: Medication reconciliation pending. ongoing stay considering intractable pain and significant size of stone unlikely to pass might need urology intervention as well as IV antibiotics and IV pain medication, need ureteral stent. For the Quality Stroke Does the patient have a stroke diagnosis?: No VTE Prior VTE?: No VTE Risk Level:: Medical - moderate - high VTE Device Contraindication: N/A - Device Ordered VTE Drug Contraindication: N/A - Med Ordered
[2024-02-16 15:59] VITALS: BP 123/58; PULSE 77; RESP 16; TEMP 36.8; O2SAT 98
[2024-02-16 19:17] VITALS: BP 119/74; PULSE 67; RESP 16; TEMP 36.4; O2SAT 97
[2024-02-16] MEDS: Acetaminophen 325 MG TABLET 650 MG PO (21:19)
[2024-02-17 03:09] VITALS: BP 101/54; PULSE 51; RESP 16; TEMP 36.2; O2SAT 96
[2024-02-17 07:01] VITALS: BP 128/68; PULSE 62; RESP 16; TEMP 36.8; O2SAT 98
[2024-02-17] MEDS: cefTRIAXone sodium 1 GM VIAL IVPUSH (08:57)
[2024-02-17] MEDS: Tamsulosin HCL 0.4 MG CAPSULE PO (08:58)
[2024-02-17] MEDS: Nicotine 21 MG PATCH.TD24 TRANSDERMA (08:58)
[2024-02-17] MEDS: Nicotine Polacrilex 2 MG GUM BUCCAL ×3 (09:09→20:58)
[2024-02-17] MEDS: Dextrose 5 % and 0.9 % NaCl 1,000 ML 80 ML IVCONT ×2 (09:10→20:57)
--- NOTE | 2024-02-17 13:09 | HO.PM.IMPN ---
Subjective Subjective Date of Service: 02/17/24 Interval History: renal colic Review of Systems abd pain seems improving denies new c/o Physical Exam Vital Signs: Vital Signs: Last Vital Signs Temp 98.2 F 02/17/24 07:01 Pulse 62 02/17/24 07:01 Resp 16 02/17/24 07:01 BP 128/68 02/17/24 07:01 Pulse Ox 98 02/17/24 07:01 O2 Del Method Room Air 02/17/24 07:01 BMI result Body Mass Index 24.9 Appearance: Alert.? Oriented X3.? also has shunt right side of neck. cvs: rrr, [id number] . res: clear to auscultation ,no rhonchii or wheezing abd: no rebound or guarding ,nt, bs present. Gu-right side cva tenderness seems improved. ext pulses present , no cyanosis. neuro: axo3 , nonfocal Objective Data Active Medications Acetaminophen (Acetaminophen 325 Mg Tablet) 650 mg PO Q6H PRN PRN Reason: Pain, Mild (Pain Scale 1-3), fever or headache Last Admin: 02/16/24 21:19 Dose: 650 mg Documented By: CANDICE Albuterol Sulfate (Albuterol Sulfate 90 Mcg 8 Gm Inhaler) 1 puff INHALE Q4H PRN PRN Reason: sob Calcium Carbonate (Calcium Carbonate 750 Mg Tab.Chew) 750 mg PO Q4H PRN PRN Reason: Heartburn Ceftriaxone Sodium (Ceftriaxone Sodium 1 Gm Vial) 1 gm IVPUSH DAILY [facility] Last Admin: 02/17/24 08:57 Dose: 1 gm Documented By: SHANNAN Hydromorphone HCl (Hydromorphone Hcl 1 Mg/Ml Syringe) 1 mg IVPUSH Q4H PRN; Protocol PRN Reason: Pain, Moderate(Pain Scale 4-6) Dextrose/Sodium Chloride (D5ns) 1,000 mls @ 80 mls/hr IVCONT .[id number] [facility] Last Admin: 02/17/24 09:10 Dose: 80 mls/hr Documented By: SHANNAN Magnesium Hydroxide (Milk Of Magnesia 30 Ml Oral.Susp) 30 ml PO DAILY PRN PRN Reason: Constipation Melatonin (Melatonin 3 Mg Tablet) 6 mg PO BEDTIME PRN PRN Reason: Insomnia Nicotine (Nicotine 21 Mg Patch.Td24) 21 mg TRANSDERMA DAILY [facility] Last Admin: 02/17/24 08:58 Dose: 21 mg Documented By: SHANNAN Nicotine Polacrilex (Nicotine Polacrilex 2 Mg Gum) 2 mg BUCCAL Q2H PRN PRN Reason: Nicotine Cravings Last Admin: 02/17/24 09:09 Dose: 2 mg Documented By: SHANNAN Sodium Chloride (0.9 % Sodium Chloride Flush 3 Ml Syringe) 3 ml IVFLUSH QSHIFT [facility] Last Admin: 02/17/24 08:50 Dose: Not Given Documented By: SHANNAN Non-Admin Reason: IV Running Tamsulosin HCl (Tamsulosin Hcl 0.4 Mg Capsule) 0.4 mg PO DAILY [facility] Last Admin: 02/17/24 08:58 Dose: 0.4 mg Documented By: SHANNAN Labs 02/15/24 12:26 02/15/24 12:26 Microbiology Microbiology Results: Microbiology 02/15/24 Unknown Urine Culture - Final Urine clean catch - Clean Catch Midstream Streptococcus viridans group 02/15/24 18:31 Blood Culture - Preliminary Blood - Venous No growth after 24 hours. 02/15/24 18:35 Blood Culture - Preliminary Blood - Venous No growth after 24 hours. 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 Patient said that he also had renal stone many years ago which he passed spontaneously. This time he is having pain from at least few weeks to month but now the pain is becoming more unbearable that is why decided to come to the hospital. 1. Renal colic/possible?uti CT abdomen shows 10 mm stone-unlikely to pass Patient was started on IV fluid, IV Dilaudid/ceftriaxone and Flomax. Patient says that he has good pain tolerance and also on pain medications so now the pain seems to be controlled. Urology evaluation-continue above management , might need stent on sunday Rest of the chronic conditions: Medication reconciliation pending. ongoing stay considering intractable pain and significant size of stone unlikely to pass might need urology intervention as well as IV antibiotics and IV pain medication, need ureteral stent. For the Quality Stroke Does the patient have a stroke diagnosis?: No VTE Prior VTE?: No VTE Risk Level:: Medical - moderate - high VTE Device Contraindication: N/A - Device Ordered VTE Drug Contraindication: N/A - Med Ordered
[2024-02-17 15:29] VITALS: BP 120/59; PULSE 79; RESP 16; TEMP 36.8; O2SAT 97
[2024-02-17 20:00] VITALS: BP 126/69; PULSE 86; RESP 18; TEMP 36.4; O2SAT 99
[2024-02-18] VITALS (8 sets, daily range): BP systolic 100–138; BP diastolic 53–82; PULSE 56–80; RESP 15–17; TEMP 36.4–36.7; O2SAT 96–99
[2024-02-18 05:53] LABS: Hematocrit 41.2 % (42.0-52.0); Hemoglobin 14.6 g/dl (14.0-18.0); Mean Corpuscular HGB Conc 35.4 g/dl (31.0-36.0); Mean Corpuscular Hemoglobin 29.1 pg (27.0-33.0); Mean Corpuscular Volume 82.1 fL (80.0-98.0); Mean Platelet Volume 9.8 fL (9.4-12.4); Platelet Count 289 X10*3/uL (160-400); Red Blood Count 5.02 X10*6/uL (4.60-5.80); Red Cell Distribution Width 12.3 % (11.0-16.0); White Blood Count 7.3 X10*3/uL (4.8-10.8)
[2024-02-18 06:08] LABS: Anion Gap 11 (12-20); Blood Urea Nitrogen 7 mg/dL (9-16); Calcium 9.1 mg/dL (8.4-10.2); Carbon Dioxide 23 mmol/L (22-29); Chloride 109 mmol/L (96-108); Creatinine Clr Calc Pharmacy 110.8; Estimated Glomerular Filt Rate > 60; Glucose Random 94 mg/dL (60-115); Potassium 3.4 mmol/L (3.3-5.1); Sodium 140 mmol/L (135-145)
[2024-02-18] MEDS: Dextrose 5 % and 0.9 % NaCl 1,000 ML 80 ML IVCONT (08:34)
[2024-02-18] MEDS: Nicotine 21 MG PATCH.TD24 TRANSDERMA (09:07)
[2024-02-18] MEDS: cefTRIAXone sodium 1 GM VIAL IVPUSH (09:12)
--- NOTE | 2024-02-18 11:14 | MHC.CM.PN ---
Addendum entered by Liliana Escalante RN 02/18/24 11:31: No insurance listed. Patient reports he was previously active w/ [employer] and isn't sure when he became inactive. Would like assistance w/ reapplying. Referral sent to financial services. Original Note: Per MD rounds patient is not medically cleared for dc. Do not anticipate the needs for services. CM will continue to follow.
--- NOTE | 2024-02-18 14:47 | HO.PM.IMPN ---
Subjective Subjective Date of Service: 02/18/24 Interval History: Renal colic Review of Systems abd pain seems improving Physical Exam Vital Signs: Vital Signs: Last Vital Signs Temp 97.9 F 02/18/24 07:34 Pulse 56 02/18/24 07:34 Resp 16 02/18/24 07:34 BP 123/61 02/18/24 07:34 Pulse Ox 96 02/18/24 07:34 O2 Del Method Room Air 02/18/24 07:34 BMI result Body Mass Index 24.9 Appearance: Alert.? Oriented X3.? also has shunt right side of neck. cvs: rrr, [id number] . res: clear to auscultation ,no rhonchii or wheezing abd: no rebound or guarding ,nt, bs present. Gu-right side cva tenderness seems improved. ext pulses present , no cyanosis. neuro: axo3 , nonfocal. Objective Data Active Medications Acetaminophen (Acetaminophen 325 Mg Tablet) 650 mg PO Q6H PRN PRN Reason: Pain, Mild (Pain Scale 1-3), fever or headache Last Admin: 02/16/24 21:19 Dose: 650 mg Documented By: CANDICE Albuterol Sulfate (Albuterol Sulfate 90 Mcg 8 Gm Inhaler) 1 puff INHALE Q4H PRN PRN Reason: sob Calcium Carbonate (Calcium Carbonate 750 Mg Tab.Chew) 750 mg PO Q4H PRN PRN Reason: Heartburn Ceftriaxone Sodium (Ceftriaxone Sodium 1 Gm Vial) 1 gm IVPUSH DAILY [facility] Last Admin: 02/18/24 09:12 Dose: 1 gm Documented By: CHU Hydromorphone HCl (Hydromorphone Hcl 1 Mg/Ml Syringe) 1 mg IVPUSH Q4H PRN; Protocol PRN Reason: Pain, Moderate(Pain Scale 4-6) Dextrose/Sodium Chloride (D5ns) 1,000 mls @ 80 mls/hr IVCONT .[id number] [facility] Last Infusion: 02/18/24 14:42 Dose: Infused Documented By: CHU Magnesium Hydroxide (Milk Of Magnesia 30 Ml Oral.Susp) 30 ml PO DAILY PRN PRN Reason: Constipation Melatonin (Melatonin 3 Mg Tablet) 6 mg PO BEDTIME PRN PRN Reason: Insomnia Nicotine (Nicotine 21 Mg Patch.Td24) 21 mg TRANSDERMA DAILY [facility] Last Admin: 02/18/24 09:07 Dose: 21 mg Documented By: CHU Nicotine Polacrilex (Nicotine Polacrilex 2 Mg Gum) 2 mg BUCCAL Q2H PRN PRN Reason: Nicotine Cravings Last Admin: 02/17/24 20:58 Dose: 2 mg Documented By: ADRIAN Sodium Chloride (0.9 % Sodium Chloride Flush 3 Ml Syringe) 3 ml IVFLUSH QSHIFT [facility] Last Admin: 02/18/24 08:12 Dose: Not Given Documented By: CHU Non-Admin Reason: IV Running Tamsulosin HCl (Tamsulosin Hcl 0.4 Mg Capsule) 0.4 mg PO DAILY [facility] Last Admin: 02/18/24 09:07 Dose: Not Given Documented By: CHU Non-Admin Reason: Physician Approved Labs 02/18/24 05:21 02/18/24 05:21 Labs: Laboratory Results - last 24 hr 02/18/24 05:21 MCV 82.1 MCH 29.1 MCHC 35.4 RDW 12.3 Plt Count 289 MPV 9.8 Absolute Nucleated RBC 0.000 Nucleated RBC % (auto) 0.0 Anion Gap 11 L Estim Creat Clear Calc 110.8 Estimated GFR > 60 Random Glucose 94 Calcium 9.1 D Microbiology Microbiology Results: Microbiology 02/15/24 18:31 Blood Culture - Preliminary Blood - Venous No growth after 48 hours. 02/15/24 18:35 Blood Culture - Preliminary Blood - Venous No growth after 48 hours. 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 Patient said that he also had renal stone many years ago which he passed spontaneously. This time he is having pain from at least few weeks to month but now the pain is becoming more unbearable that is why decided to come to the hospital. 1. Renal colic/possible?uti CT abdomen shows 10 mm stone-unlikely to pass Patient was started on IV fluid, IV Dilaudid/ceftriaxone and Flomax. Patient says that he has good pain tolerance and also on pain medications so now the pain seems to be controlled. Urology evaluation-continue above management , might need stent on sunday Rest of the chronic conditions: Medication reconciliation pending. ongoing stay considering intractable pain and significant size of stone unlikely to pass might need urology intervention as well as IV antibiotics and IV pain medication, need ureteral stent. For the Quality Stroke Does the patient have a stroke diagnosis?: No VTE Prior VTE?: No VTE Risk Level:: Medical - moderate - high VTE Device Contraindication: N/A - Device Ordered VTE Drug Contraindication: N/A - Med Ordered
--- NOTE | 2024-02-18 15:25 | P.CNUR_ITS ---
History of Present Illness Consult details Consult date: 02/16/24 Narrative: CC: Distal right ureteric stone 33-year-old male Prior history of kidney stones Presents through emergency room with right flank pain, dark urine. States subjective fever and nausea Pain similar to prior stone pain Pain 11/23 and responded to medication Creatinine 0.7, calcium 9.1, WBC 7.3 Imaging - CT There is a 10 mm obstructing calculus at the right ureteropelvic junction resulting in dilatation of the pelvicalyceal system Recommend stone intervention Sunday He can eat Sunday and Sunday Review of Systems 2 Constitutional: Constitutional: Reports as per HPI and Reports no additional constitutional complaints Cardiovascular: Cardiovascular: Reports as per HPI and Reports no additional cardiovascular complaints Respiratory: Respiratory: Reports as per HPI and Reports no additional respiratory complaints Gastrointestinal: Gastrointestinal: Reports as per HPI and Reports no additional gastrointestinal complaints Genitourinary: Genitourinary: Reports as per HPI Musculoskeletal: Musculoskeletal: Reports no additional musculoskeletal complaints and Reports as per HPI Neurologic: Reports system reviewed and no additional complaints, except as documented and Reports as per HPI PMFSH Past Medical History Medical History Asthma Surgical History Surgical History 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 Social History Social History Household Members: None Housing: Apartment Are you a primary early breastfeeding care specialist to a significant other at home: No Do you presently have visiting nurse or other home services: No Alcohol intake: current Alcohol type: wine and hard liquor Patient Tobacco Use Status: Current everyday Tobacco user Tobacco use type: Cigarette Cigarettes Per Day: 1 Smoked in Last 30 Days: Yes e-Cigarette/Vaping Use: Currently Using Frequency of e-Cigarette/Vaping Use: sometimes Patient Interested in Nicotine Replacement: Yes Patient Given Instructions on How to Stop Smoking: Yes Date Education Initiated: 02/15/24 Use of substances other than those prescribed or required for medical reasons: Yes Substance Use Type: Marijuana Substance Use Frequency: Daily Last Used Substance Other:: 0545 Currently Displaying Signs/Symptoms of Drug Intoxication Withdrawal: No Any prior treatment program specific to substance use: No Have you been hit, kicked, punched, or otherwise hurt by someone within the past year? If so, by whom?: No Do you feel safe in your current relationship?: No Is there a partner from a previous relationship who is making you feel unsafe now?: No Are you made to feel afraid or neglected: No Are you DNR?: No Advance Directives: No Advance Directives Information Provided: Yes Do you have a plan to hurt others: No Plan Recently lost weight without trying: No Eating poorly because of decreased appetite: No Nutrition Risks: No Nutritional Risk Poor oral hygiene: No service: No Meds Allergies Allergy/AdvReac Type Severity Reaction Status Date / Time shrimp Allergy Unknown SWELLING Verified 02/15/24 09:59 Active Medications: Current Medications Acetaminophen (Acetaminophen 325 Mg Tablet) 650 mg PO Q6H PRN PRN Reason: Pain, Mild (Pain Scale 1-3), fever or headache Last Admin: 02/16/24 21:19 Dose: 650 mg Albuterol Sulfate (Albuterol Sulfate 90 Mcg 8 Gm Inhaler) 1 puff INHALE Q4H PRN PRN Reason: sob Calcium Carbonate (Calcium Carbonate 750 Mg Tab.Chew) 750 mg PO Q4H PRN PRN Reason: Heartburn Ceftriaxone Sodium (Ceftriaxone Sodium 1 Gm Vial) 1 gm IVPUSH DAILY [facility] Last Admin: 02/18/24 09:12 Dose: 1 gm Hydromorphone HCl (Hydromorphone Hcl 1 Mg/Ml Syringe) 1 mg IVPUSH Q4H PRN; Protocol PRN Reason: Pain, Moderate(Pain Scale 4-6) Dextrose/Sodium Chloride (D5ns) 1,000 mls @ 80 mls/hr IVCONT .[id number] [facility] Last Infusion: 02/18/24 14:42 Dose: Infused Levofloxacin (Levaquin) 500 mg in 100 mls @ 100 mls/hr IV PREOP ONE Stop: 02/18/24 16:24 Magnesium Hydroxide (Milk Of Magnesia 30 Ml Oral.Susp) 30 ml PO DAILY PRN PRN Reason: Constipation Melatonin (Melatonin 3 Mg Tablet) 6 mg PO BEDTIME PRN PRN Reason: Insomnia Nicotine (Nicotine 21 Mg Patch.Td24) 21 mg TRANSDERMA DAILY [facility] Last Admin: 02/18/24 09:07 Dose: 21 mg Nicotine Polacrilex (Nicotine Polacrilex 2 Mg Gum) 2 mg BUCCAL Q2H PRN PRN Reason: Nicotine Cravings Last Admin: 02/17/24 20:58 Dose: 2 mg Sodium Chloride (0.9 % Sodium Chloride Flush 3 Ml Syringe) 3 ml IVFLUSH QSHIFT [facility] Last Admin: 02/18/24 08:12 Dose: Not Given Tamsulosin HCl (Tamsulosin Hcl 0.4 Mg Capsule) 0.4 mg PO DAILY [facility] Last Admin: 02/18/24 09:07 Dose: Not Given Home Medications ?Medication ?Instructions ?Recorded ?Confirmed ?Last Taken ?Type No Known Home Meds 02/15/24 02/15/24 Unknown History Physical Exam 2 Vital Signs: Vital Signs: Last Vital Signs Temp 98.1 F 02/18/24 14:49 Pulse 73 02/18/24 14:49 Resp 16 02/18/24 14:49 BP 138/78 02/18/24 14:49 Pulse Ox 98 02/18/24 14:49 O2 Del Method Room Air 02/18/24 14:49 BMI result Body Mass Index 24.9 Const: General: cooperative, healthy appearing, comfortable and no acute distress Orientation/consciousness: patient oriented x3 HEENT: Face and sinus: Yes normal facial exam Mouth: moist mucous membranes Neck: Neck: Yes normal visual inspection, Yes full ROM and Yes trachea midline Chest: Chest palpation & inspection: normal inspection of the chest Resp: Effort & Inspection: normal respiratory effort, able to speak in complete sentences and no respiratory distress GI: Inspection: Yes normal to inspection Back/Spine/Pelvis: Cervical Spine: normal cervical lordosis Thoracic/Lumbar Spine: thoracic and lumbar spine normal to inspection Skin: General skin exam: no rashes or lesions noted Neuro: General: patient oriented x3, tone normal and moves all extremities Extrem: General: Yes normal to inspection and Yes capillary refill normal Results Labs 02/18/24 05:21 02/18/24 05:21 Labs: Abnormal lab results 02/18/24 Range/Units 05:21 Hct 41.2 L (42.0-52.0) % Chloride 109 H (96-108) mmol/L Anion Gap 11 L (12-20) BUN 7 L (9-16) mg/dL Short CBC 02/18/24 Range/Units 05:21 WBC 7.3 (4.8-10.8) X10*3/uL Hgb 14.6 (14.0-18.0) g/dl Hct 41.2 L (42.0-52.0) % Plt Count 289 (160-400) X10*3/uL BMP 02/18/24 05:21 Sodium 140 Potassium 3.4 Chloride 109 H Carbon Dioxide 23 BUN 7 L Creatinine 0.77 Calcium 9.1 D Urine 02/15/24 Range/Units 10:44 Urine Color BROWN Urine Appearance Cloudy Urine pH 6.5 (5.0-9.0) Ur Specific Peterson >= 1.030 H (1.005-1.025) Urine Protein 300 (3+) H (Neg-Trace) mg/dL Urine Glucose (UA) Negative (Negative) mg/dL All other labs normal. Assessment and Plan (1) Ureteric stone: Status: Acute (2) Renal colic: Status: Acute Plan Ureteroscopy We discussed the nature of the decision and reasonable alternatives for performing ureteroscopy. Options such as medical therapy were discussed. Interventions include chemical dissolution, ESWL, ureteroscopy with laser lithotripsy and stent placement, PCNL. The relative uncertainties and benefits related to each alternate procedure were adequately discussed. General surgical risks including, but not limited to - pain, bleeding, infection, myocardial infarction, pulmonary embolus, deep vein thrombosis and cerebrovascular accident which may result in further hospitalization were discussed. Full disclosure of the procedure as well as all major risks, benefits and complications were discussed including but not limited to damage to the urethra, bladder and kidney infection, damage to the ureter, stent migration or malposition, scarring to the renal pelvis, remnant stone fragments, subsequent stone passage with need for secondary procedures. The overall secondary procedure rate is approximately 10-15%. The overall clearance rate is approximately 90-95%. Success of the procedure in the short-term does not necessarily guarantee that long-term success will be maintained. Suitable follow up will need to be maintained. The patient showed understanding of discussion and wishes to proceed with - cystoscopy, retrograde, ureteroscopy, possible lithotripsy/stone basketing and stent on the right side Procedures Date of Service Date of Service: 02/18/24
--- NOTE | 2024-02-18 15:46 | P.CONAN_ITS ---
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 History of Problems with Anesthesia: No Social History Social History Household Members: None Housing: Apartment Are you a primary care mgr to a significant other at home: No Do you presently have visiting nurse or other home services: No Alcohol intake: current Alcohol type: wine and hard liquor Patient Tobacco Use Status: Current everyday Tobacco user Tobacco use type: Cigarette Cigarettes Per Day: 1 Smoked in Last 30 Days: Yes e-Cigarette/Vaping Use: Currently Using Frequency of e-Cigarette/Vaping Use: sometimes Patient Interested in Nicotine Replacement: Yes Patient Given Instructions on How to Stop Smoking: Yes Date Education Initiated: 02/15/24 Use of substances other than those prescribed or required for medical reasons: Yes Substance Use Type: Marijuana Substance Use Frequency: Daily Last Used Substance Other:: 0545 Currently Displaying Signs/Symptoms of Drug Intoxication Withdrawal: No Any prior treatment program specific to substance use: No Have you been hit, kicked, punched, or otherwise hurt by someone within the past year? If so, by whom?: No Do you feel safe in your current relationship?: No Is there a partner from a previous relationship who is making you feel unsafe now?: No Are you made to feel afraid or neglected: No Are you DNR?: No Advance Directives: No Advance Directives Information Provided: Yes Do you have a plan to hurt others: No Plan Recently lost weight without trying: No Eating poorly because of decreased appetite: No Nutrition Risks: No Nutritional Risk Poor oral hygiene: No service: No Meds Allergies Allergy/AdvReac Type Severity Reaction Status Date / Time shrimp Allergy Unknown SWELLING Verified 02/15/24 09:59 Active Medications: Current Medications Acetaminophen (Acetaminophen 325 Mg Tablet) 650 mg PO Q6H PRN PRN Reason: Pain, Mild (Pain Scale 1-3), fever or headache Last Admin: 02/16/24 21:19 Dose: 650 mg Albuterol Sulfate (Albuterol Sulfate 90 Mcg 8 Gm Inhaler) 1 puff INHALE Q4H PRN PRN Reason: sob Calcium Carbonate (Calcium Carbonate 750 Mg Tab.Chew) 750 mg PO Q4H PRN PRN Reason: Heartburn Ceftriaxone Sodium (Ceftriaxone Sodium 1 Gm Vial) 1 gm IVPUSH DAILY [facility] Last Admin: 02/18/24 09:12 Dose: 1 gm Hydromorphone HCl (Hydromorphone Hcl 1 Mg/Ml Syringe) 1 mg IVPUSH Q4H PRN; Protocol PRN Reason: Pain, Moderate(Pain Scale 4-6) Dextrose/Sodium Chloride (D5ns) 1,000 mls @ 80 mls/hr IVCONT .[id number] [facility] Last Infusion: 02/18/24 14:42 Dose: Infused Levofloxacin (Levaquin) 500 mg in 100 mls @ 100 mls/hr IV PREOP ONE Stop: 02/18/24 16:24 Magnesium Hydroxide (Milk Of Magnesia 30 Ml Oral.Susp) 30 ml PO DAILY PRN PRN Reason: Constipation Melatonin (Melatonin 3 Mg Tablet) 6 mg PO BEDTIME PRN PRN Reason: Insomnia Nicotine (Nicotine 21 Mg Patch.Td24) 21 mg TRANSDERMA DAILY [facility] Last Admin: 02/18/24 09:07 Dose: 21 mg Nicotine Polacrilex (Nicotine Polacrilex 2 Mg Gum) 2 mg BUCCAL Q2H PRN PRN Reason: Nicotine Cravings Last Admin: 02/17/24 20:58 Dose: 2 mg Sodium Chloride (0.9 % Sodium Chloride Flush 3 Ml Syringe) 3 ml IVFLUSH QSHIFT [facility] Last Admin: 02/18/24 08:12 Dose: Not Given Tamsulosin HCl (Tamsulosin Hcl 0.4 Mg Capsule) 0.4 mg PO DAILY [facility] Last Admin: 02/18/24 09:07 Dose: Not Given Home Medications ?Medication ?Instructions ?Recorded ?Confirmed ?Last Taken ?Type No Known Home Meds 02/15/24 02/15/24 Unknown History Exam Height,Weight and Vital Signs: Height 5 ft 3 in Weight 63.8 kg Last Vital Signs Temp 98.1 F 11/04/24 14:49 Pulse 73 02/18/24 14:49 Resp 16 02/18/24 14:49 BP 138/78 02/18/24 14:49 Pulse Ox 98 02/18/24 14:49 O2 Del Method Room Air 02/18/24 14:49 Pertinent Lab Results Pertinent Lab Results: Laboratory Tests 02/15/24 02/15/24 02/15/24 10:44 12:26 18:35 WBC 13.2 H RBC 5.45 Hgb 15.7 Hct 44.8 MCV 82.2 MCH 28.8 MCHC 35.0 RDW 12.3 Plt Count 328 MPV 9.8 Immature Gran % (Auto) 0.5 H Neut % (Auto) 83.8 H Lymph % (Auto) 8.6 L [place] % (Auto) 6.1 Eos % (Auto) 0.8 Baso % (Auto) 0.2 Lymph # (Auto) 1.1 L [place] # (Auto) 0.8 Eos # (Auto) 0.1 Baso # (Auto) 0.0 Abs Immat Gran (auto) 0.06 H Absolute Neuts (auto) 11.1 H Absolute Nucleated RBC 0.000 Nucleated RBC % (auto) 0.0 Sodium 138 Potassium 4.0 Chloride 104 Carbon Dioxide 27 Anion Gap 11 L BUN 10 Creatinine 0.93 Estim Creat Clear Calc 91.7 Estimated GFR > 60 Random Glucose 97 Lactic Acid 0.8 Calcium 10.1 Total Bilirubin 1.1 H AST 29 ALT 32 Alkaline Phosphatase 64 Total Protein 7.6 Albumin 4.7 Urine Color BROWN Urine Appearance Cloudy Urine pH 6.5 Ur Specific [place] >= 1.030 H Urine Protein 300 (3+) H Urine Glucose (UA) Negative Urine Ketones Trace Urine Blood Large (3+) H Urine Nitrite Positive H Ur Leukocyte Esterase Trace H Urine RBC >20 H Urine WBC >50 H Ur Squamous Epith Cells 0-2 Urine Bacteria None Seen Hyaline Casts 0-2 02/18/24 05:21 WBC 7.3 RBC 5.02 Hgb 14.6 Hct 41.2 L MCV 82.1 MCH 29.1 MCHC 35.4 RDW 12.3 Plt Count 289 MPV 9.8 Immature Gran % (Auto) Neut % (Auto) Lymph % (Auto) [place] % (Auto) Eos % (Auto) Baso % (Auto) Lymph # (Auto) [place] # (Auto) Eos # (Auto) Baso # (Auto) Abs Immat Gran (auto) Absolute Neuts (auto) Absolute Nucleated RBC 0.000 Nucleated RBC % (auto) 0.0 Sodium 140 Potassium 3.4 Chloride 109 H Carbon Dioxide 23 Anion Gap 11 L BUN 7 L Creatinine 0.77 Estim Creat Clear Calc 110.8 Estimated GFR > 60 Random Glucose 94 Lactic Acid Calcium 9.1 D Total Bilirubin AST ALT Alkaline Phosphatase Total Protein Albumin Urine Color Urine Appearance Urine pH Ur Specific [place] Urine Protein Urine Glucose (UA) Urine Ketones Urine Blood Urine Nitrite Ur Leukocyte Esterase Urine RBC Urine WBC Ur Squamous Epith Cells Urine Bacteria Hyaline Casts Airway Mallampati Class: II TM Dist: >3cm Neck ROM: Full Loose/Missing/Broken Teeth: Yes (upper left broken) Heart: rrr Lungs: cta Assessment and Plan Assessment Anesthesia Assessment: Anesthesia Plan Discussed Final Anesthetic Review Family History of Problems with Anesthesia: No History of Problems with Anesthesia: No NPO: Yes ASA Class: II Final Preanesthetic Review: No Changes in Pt Med Stat, Meds/Allgs Chart Reviewed, Consent Obtained/Reviewed and Anes Risks/Benef Reviewed Patient Risk: Low Procedure Risk: Low Anesthetic Plan Anesthetic Plan: GA Disposition: Standard PACU
--- NOTE | 2024-02-18 17:10 | P.OP_ITS ---
Operative Note Operative Note Date of Service: 02/18/24 Narrative: PreOperative Diagnosis: 8 mm mid right ureteric stone with hydronephrosis Post Operative Diagnosis: 8 mm mid right stone with hydronephrosis Procedure: - cystoscopy, right retrograde - right dilatation of ureteric orifice under fluoroscopy - right ureteroscopy, laser lithotripsy, stone basketing - right stent placement Surgeon: Dr López Reyes Anesthesia: General Indications for procedure: Present through emergency room with persistent right pain. Nodes done former. Imaging with mid right ureteric 8 mm stone Procedure: After informed consent was verified the patient was brought to the operating room and placed in a supine position. Anesthesia was administered per protocol. The patient was placed in a modified dorsal lithotomy position and prepped and draped in a sterile fashion. Safety pause time-out and side of surgery were confirmed. Images were available for review. Antibiotic administration confirmed. A 22 Martiniquais cystoscope was inserted per urethra. The urethra was without aabnormality. The bladder was normal in its entirety. Both ureteric orifices were seen in normal position . The right ureteric orifice was cannulated and a retrograde examination was performed. Filling defect mid right ureter with proximal hydronephrosis . A Sensor guidewire was placed up to the level of the renal pelvis under fluoroscopy. The rigid cystoscope was removed. A Doyle dilator was placed over the Sensor guidewire and used to dilate the ureteric orifice under fluoroscopy. The dilator was removed. The semi rigid ureteral scope was placed alongside the Sensor guidewire. Stone was encountered.. Using a 365 micro holmium laser fiber the stone was broken into small pieces using a combination of hammer and dusting techiques - hard stone power up to 1.5 joules. Stone fragments were removed from the ureter using a 2.1 Martiniquais ZeroTip basket basket. Once the fragments were removed a decision was made to place a ureteric stent. Based on the height of the patient a 6 Fr x 22 stent was used. The string was removed from the stent prior to placement The rigid cystoscope was backloaded over the wire and advanced into the bladder. A 6 Martiniquais by 22 cm double-J stent was placed into the renal pelvis and bladder under a combination of fluoroscopy and direct visualization. The bladder was emptied. The patient tolerated the procedure well and was extubated in the operating room. They were transferred in stable condition to the recovery area. Pathology: Stone was unable to be captured had been placed in the bladder Drains: Double J stent as described above
[2024-02-18] MEDS: Phenazopyridine HCL 100 MG TABLET PO (17:35)
--- NOTE | 2024-02-18 17:44 | P.DS_ITS ---
DS: Providers Provider Date of Service: 02/18/24 Date of admission: 02/16/24 12:45 Date of discharge: 02/18/24 Primary care physician: Vilma Gonzalez DO Consults: 02/15/24 18:37 Consult to Urology Routine Consulting Provider: [facility] Reason for consultation: nephrolithasis Has provider been notified: No Discharging clinician: López Reyes DS: Diagnosis Discharge Diagnosis (1) Kidney stone: Status: Acute DS: Summary Hospital Course Hospital Course: Admit Sunday with right flank pain Procedure performed Sunday for cystoscopy, retrograde, laser, stent Status at Discharge Functional status at discharge: independent ambulation Overall status at discharge: patient is back to baseline Time Attestation Total time managing care of this patient today: 30 mintues. Discharge Coordination Time (in mins): 15 Quality: Safe Use of Opioids Does Pt have an Active Cancer Diagnosis on the Problem List?: No Quality: Stroke Does the patient have a stroke diagnosis?: No Physical Exam Vital Signs: Vital Signs: Last Vital Signs Temp 97.9 F 02/18/24 17:35 Pulse 77 02/18/24 17:35 Resp 16 02/18/24 17:35 BP 118/69 02/18/24 17:35 Pulse Ox 98 02/18/24 17:35 O2 Del Method Room Air 02/18/24 17:35 O2 Flow Rate 6 02/18/24 17:25 BMI result Body Mass Index 24.9 DS: Data Data Completed and Pending Labs on day of discharge: Laboratory Results - last 24 hr 02/18/24 05:21 WBC 7.3 RBC 5.02 Hgb 14.6 Hct 41.2 L MCV 82.1 MCH 29.1 MCHC 35.4 RDW 12.3 Plt Count 289 MPV 9.8 Absolute Nucleated RBC 0.000 Nucleated RBC % (auto) 0.0 Sodium 140 Potassium 3.4 Chloride 109 H Carbon Dioxide 23 Anion Gap 11 L BUN 7 L Creatinine 0.77 Estim Creat Clear Calc 110.8 Estimated GFR > 60 Random Glucose 94 Calcium 9.1 D Preliminary micro results at discharge 02/15/24 18:31 Blood Culture - Preliminary Blood - Venous No growth after 48 hours. 02/15/24 18:35 Blood Culture - Preliminary Blood - Venous No growth after [address] scan - abdomen: Attestation: I personally reviewed and interpreted this imaging study as follows: Radiologist's impression: ITS Impressions Abdomen/Pelvis CT 02/15/24 12:56 IMPRESSION: 10 mm obstructing calculus at the right ureteropelvic junction resulting in right hydronephrosis. Nonobstructing nephrolithiasis, right kidney. Fleischner guidelines were followed. Electronically signed by: Elias Art MD 02/15/2024 03:33 PM EDT Discharge Plan Discharge Anticipated Discharge Date/Time: 02/18/24 17:46 Patient Disposition: Home, Self-Care Discharge Diagnosis: Right mid ureteric stone with renal colic Referrals: Vilma Gonzalez DO [Primary Care Provider] - 1 Week Discharge Medications: New oxycodone-acetaminophen 5-325 mg tablet 1 tab PO Q8H PRN (Reason: pain) 3 Days Qty: 8 0RF Rx Instructions: Partial Fill upon patient request. tamsulosin 0.4 mg capsule 0.4 mg PO BEDTIME 14 Days Qty: 14 0RF phenazopyridine [Pyridium] 100 mg tablet 100 mg PO TID PRN (Reason: Spasm) 4 Days Qty: 12 0RF naproxen 500 mg tablet 500 mg PO BID PRN (Reason: pain) 7 Days Qty: 14 0RF Discharge Orders: Discharge Order (Routine); Ordered 02/18/24 Ordered By: López Reyes Diet: Advance to usual diet Activity on Discharge: As tolerated Stand Alone Forms: Patient Portal Discharge page Print Language: Belarusian Care Plan Goals: Stones Health Concerns: Stones Plan of Treatment: Stones Assessment: Stones Patient Instructions: Ureteroscopy (DC)
[2024-02-18] MEDS: oxyCODONE HCl Immed Release 5 MG TABLET PO (19:33)
--- NOTE | 2024-02-19 07:19 | PM.DS ---
DS: Providers Provider Date of Service: 02/19/24 Date of admission: 02/16/24 12:45 Date of discharge: 02/19/24 Primary care physician: Vilma Gonzalez DO Consults: 02/15/24 18:37 Consult to Urology Routine Consulting Provider[place] [facility] Reason for consultation: nephrolithasis Has provider been notified: No Attending physician on discharge: Davide Krause Discharging clinician: Davide Krause DS: Diagnosis Discharge Diagnosis (1) Kidney stone: Status: Acute DS: Summary Hospital Course Hospital Course: date of service and discharge:02/18/24 HPI: 33y/o M with hx kidney stone, mild intermittent asthma, also has 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 Patient said that he also had renal stone many years ago which he passed spontaneously. This time he is having pain from at least few weeks to month but now the pain is becoming more unbearable that is why decided to come to the hospital. CBC and BMP, UA, abdominal imaging reviewed: Patient has leukocytosis, pyuria/hematuria, CT abdomen shows 10 mm obstructing calculus in the right ureteropelvic junction with right-sided hydronephrosis. ED physician discussed the case with Urology recommended to start IV fluid, pain management and antibiotics and recommended admission for medical floor. Hospital course: Patient was admitted to the hospital because of right-sided flank pain found -further CT abdomen revealed 10 mm obstructing calculi in right ureteropelvic junction-patient was seen by Urology: s/pProcedure performed Sunday for cystoscopy, retrograde, laser, stent: Subsequently patient was doing well after procedure, went home last night(please see urology discharge summary also). Patient 's was also given po ceftin 500 mg po bid x7 days upon discharge . urine culture -strep viridans (10 k to 50k cfu/ml). plan: complete po ceftin 500 mg po bid x7 days upon discharge . follow up with urology Assessment and plan coordination time spent 40 minute. Time Attestation Total time managing care of this patient today: 40 mintues. Discharge Coordination Time (in mins): 40 min Quality: Safe Use of Opioids Does Pt have an Active Cancer Diagnosis on the Problem List?: No Quality: Stroke Does the patient have a stroke diagnosis?: No Physical Exam Vital Signs: Vital Signs: Last Vital Signs Temp 97.8 F 02/18/24 18:06 Pulse 65 02/18/24 18:06 Resp 16 02/18/24 18:06 BP 131/82 02/18/24 18:06 Pulse Ox 96 02/18/24 18:06 O2 Del Method Room Air 02/18/24 18:06 O2 Flow Rate 6 02/18/24 17:25 BMI result Body Mass Index 24.9 Appearance: Alert.? Oriented X3.? also has shunt right side of neck. cvs: rrr, [id number] . res: clear to auscultation ,no rhonchii or wheezing abd: no rebound or guarding ,nt, bs present. Gu-right side cva tenderness seems improved. ext pulses present , no cyanosis. neuro: axo3 , nonfocal. DS: Data Data Completed and Pending Labs on day of discharge: Preliminary micro results at discharge 02/15/24 18:31 Blood Culture - Preliminary Blood - Venous No growth after 48 hours. 02/15/24 18:35 Blood Culture - Preliminary Blood - Venous No growth after 48 hours. Imaging Chest x-ray: Radiologist's impression: ITS Impressions Abdomen/Pelvis CT 02/15/24 12:56 IMPRESSION: 10 mm obstructing calculus at the right ureteropelvic junction resulting in right hydronephrosis. Nonobstructing nephrolithiasis, right kidney. Fleischner guidelines were followed. Electronically signed by: Elias Art MD 02/15/2024 03:33 PM EDT Discharge Plan Discharge Anticipated Discharge Date/Time: 02/18/24 17:46 Patient Disposition: Home, Self-Care Discharge Diagnosis: Right mid ureteric stone with renal colic Referrals: Vilma Gonzalez DO [Primary Care Provider] - 1 Week Discharge Medications: New oxycodone-acetaminophen 5-325 mg tablet 1 tab PO Q8H PRN (Reason: pain) 3 Days Qty: 8 0RF Rx Instructions: Partial Fill upon patient request. tamsulosin 0.4 mg capsule 0.4 mg PO BEDTIME 14 Days Qty: 14 0RF phenazopyridine [Pyridium] 100 mg tablet 100 mg PO TID PRN (Reason: Spasm) 4 Days Qty: 12 0RF naproxen 500 mg tablet 500 mg PO BID PRN (Reason: pain) 7 Days Qty: 14 0RF cefuroxime axetil 500 mg tablet 500 mg PO BID 7 Days Qty: 14 0RF Discharge Orders: Discharge Order (Routine); Ordered 02/18/24 Ordered By: López Reyes Diet: Advance to usual diet Activity on Discharge: As tolerated Stand Alone Forms: Patient Portal Discharge page, Work/School Release Print Language: Ecuadorean Care Plan Goals: Stones Health Concerns: Stones Plan of Treatment: Stones Assessment: Stones Patient Instructions: Ureteroscopy (DC) Discharge Date/Time: 02/18/24 19:40
== END 2024-02-18 19:40 | disposition home or self-care (01) | DRG 661 ==
LOC: HO.ED 11:37 → HO.EDOVER 18:50 → HO.S3 19:32
PROVIDERS: Physician Assistant; Urology; Admitting Provider Internal Medicine; Emergency Provider Emergency Medicine Emergency Medical Services; PCP Family Medicine; Visit Provider Internal Medicine
PROC: 0T768DZ Dilation of Right Ureter with Intraluminal Device, Via Natural or Artificial Opening Endoscopic (ICD-10-PCS; principal; 2024-02-18 16:30)
DX: N13.6 Pyonephrosis (principal); J45.20 Mild intermittent asthma, uncomplicated; F17.210 Nicotine dependence, cigarettes, uncomplicated; Z71.6 Tobacco abuse counseling; Z79.899 Other long term (current) drug therapy
CPT/HCPCS: 36415; 74176; 80048; 80053; 81001; 83605; 85025; 85027; 87040; 87086; 99285; C1758; C1769; C2617; J0696; J1100; J1885; J2003; J2250; J2405; J2704; J3010; Q9967

== ENCOUNTER → 2024-02-15 10:32 | Outpatient (BNV) | payer SELFPAY | PROVIDERS: Emergency Provider Emergency Medicine Emergency Medical Services; PCP Family Medicine; Visit Provider Internal Medicine | DX: N20.0 Calculus of kidney (principal) | CPT/HCPCS: 99222; 99231; 99239 ==

== ENCOUNTER → 2024-02-15 12:42 | Outpatient (BNV) | payer SELFPAY | PROVIDERS: Emergency Provider Emergency Medicine Emergency Medical Services; PCP Family Medicine; Visit Provider Radiology Diagnostic Radiology | DX: N20.0 Calculus of kidney (principal) | CPT/HCPCS: 74176 ==

== ENCOUNTER → 2024-02-16 12:45 | Outpatient (BNV) | payer SELFPAY | PROVIDERS: Admitting Provider Internal Medicine; Emergency Provider Emergency Medicine Emergency Medical Services; PCP Family Medicine; Visit Provider Urology | DX: N20.1 Calculus of ureter (principal); N23 Unspecified renal colic; N20.0 Calculus of kidney; N13.2 Hydronephrosis with renal and ureteral calculous obstruction | CPT/HCPCS: 52356; 74420; 99222 ==

== ENCOUNTER 2024-02-28 14:02 | Outpatient (AMB) | payer SELFPAY ==
--- NOTE | 2024-02-28 14:05 | MHC.OFFVIS ---
Intake Visit Reasons: Stent Removal Intake Note: Patient is present for STENT REMOVAL Urology Medication:OXYCODONE,PYRIDIUM,NAPROXEN,TAMSULOSIN Antibiotic Allergy:NONE Blood Thinner:NONE Green Chain Offbearer Required: No Allergies shrimp Allergy (Unknown, Verified 02/28/24 14:06) SWELLING HPI Comments Details: Gregorio is a pleasant male. He is seen for the following urologic conditions - nephrolithiasis - here for stent removal Underwent recent ureteroscopy with laser lithotripsy Ct - there is a 10 mm obstructing calculus at the right ureteropelvic junction resulting in dilatation of the pelvicalyceal system. 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 Information consent for procedure given to the patient. Discussed technical aspects, risks, benefits and alternatives in full. Addressed all of the patient's questions and concerns regarding the procedure. The patient demonstrated knowledge and understanding. They wish to proceed with this procedure. Preparation The patient was prepped in the usual manner. A dishwasher busser was present and in the room. Genitalia was prepped with betadine solution in a sterile manner. Lidocaine Jelly 2% was placed into the urethra and 16Fr flexible Olympus cystoscope was inserted into the meatus after adequate lubrication. Procedure A well lubricated 16 Burundian cystoscope was placed No abnormality noted of urethra during placement Indwelling stent seen within bladder emerging from right ureteric orifices The stent was grasped with a 3 prong grasper and removed without difficulty The patient tolerated the procedure well [id number] with stent removal DISPOSABLE SCOPE URO-G FLEXIBLE SCOPE Procedure code (CPT) selection complete Office Meds lidocaine HCl 2 % mucosal jelly in applicator Performing Provider: López Reyes MD [place] [facility] [facility] [place] [facility] Administered by: López Reyes MD on 02/28/24 15:09 Dose Route Admin Location Dispensed Lot Number Expiration Date ND [employer] 10 mL intra-urethral 10 mL Results AMB Urinalysis, Automated UA Leukoctes 125 Maximino/uL Last Edit by IRENE West on 02/28/24 14:24 UA Nitrite Negative Last Edit by IRENE West on 02/28/24 14:24 UA Urobilinogen 0.2 mg/dL Last Edit by IRENE West on 02/28/24 14:24 UA Protein 300 mg/dL Last Edit by IRENE West on 02/28/24 14:24 UA pH 6.0 Last Edit by IRENE West on 02/28/24 14:24 UA Blood 200 [place]aye/uL Last Edit by IRENE West on 02/28/24 14:24 UA Specific [place] 1.025 Last Edit by IRENE West on 02/28/24 14:24 UA Ketone Negative Last Edit by IRENE West on 02/28/24 14:24 UA Bilirubin 0 mg/dL Last Edit by IRENE West on 02/28/24 14:24 UA Glucose 0 mg/dL Last Edit by IRENE West on 02/28/24 14:24 Results Reviewed Results Reviewed: Laboratory Last Values Urine pH (Auto) 6.0 02/28/24 14:23 Specific [place] (Auto) 1.025 02/28/24 14:23 Urine Protein (Auto) 300 mg/dL 02/28/24 14:23 Glucose (UA)(Auto) 0 mg/dL 02/28/24 14:23 Urine Ketones (Auto) Negative 02/28/24 14:23 Urine Blood (Auto) 200 [place]/uL 02/28/24 14:23 Urine Nitrite (Auto) Negative 02/28/24 14:23 Urine Bilirubin (Auto) 0 mg/dL 02/28/24 14:23 Urine Urobilinogen (Auto) 0.2 mg/dL 02/28/24 14:23 Leukocyte Esterase (Auto) 125 Maximino/uL 02/28/24 14:23 Assessment & Plan Assessment & Plan (1) Kidney stone: Code(s): N20.0 - Calculus of kidney Category: Medical Plan Two month follow-up Orders: Orders AMB Urinalysis Automated Today Z13.9 - Encounter for screening, unspecified AMB Cystoscopy Today N20.0 - Calculus of kidney Medications: New lidocaine HCl 2% 10 mL intra-urethral ONCE 10 mL 0RF N20.0 - Calculus of kidney Patient Instructions: Imaging studies, laboratory and physical exam results were discussed and reviewed in detail. No major barriers to patient understanding were identified. An opportunity to ask questions regarding the treatment plan was provided. All questions were answered. The patient expressed understanding and agreement with the above treatment plan. The patient is aware they should contact our office by phone for worsening of their current condition or the appearance of new urologic symptoms. Compliance is encouraged with any medications and followup testing that is ordered. It is a privilege to participate in the urologic care of your patient. If you have any questions or concerns regarding treatment for the above conditions, or other urologic issues, please do not hesitate to contact me. The office telephone contact is [phone]. This note is constructed using voice recognition software. While every effort has been made to ensure accuracy staffing assistant errors may have been included. Yours sincerely, Dr López Reyes MD, [facility] - Urology Providers of Expert, Compassionate Care for the Genitourinary System Coding Level of Care Code Procedure Only Diagnoses Kidney stone N20.0 CPT Codes Cystoscopy - CPT: 92388-[id number] with stent removal ([id number])
== END 2024-02-28 14:54 | disposition home or self-care (01) ==
PROVIDERS: PCP Family Medicine; Visit Provider Urology
DX: N20.0 Calculus of kidney (principal); Z96.0 Presence of urogenital implants; Z13.9 Encounter for screening, unspecified
CPT/HCPCS: 52310

== ENCOUNTER → 2024-02-28 14:02 | Outpatient (BNVA) | payer SELFPAY | PROVIDERS: PCP Family Medicine; Visit Provider Urology | DX: Z48.816 Encounter for surgical aftercare following surgery on the genitourinary system (principal) | CPT/HCPCS: 52310; 81003 ==